=== PATIENT | male | born 2000 | race Caucasian/White ===

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

== ENCOUNTER 2020-03-09 19:32 | Emergency (ER) | payer BC, MEDICAID, OTHER ==
[~2020-03-09] VITALS: Ht 170 cm; Wt 101.0 kg
--- NOTE | 2020-03-09 19:43 | ED General ---
General Stated Complaint: DEHYDRATION Source of Information: Patient Exam Limitations: No Limitations History of Present Illness Date Seen by Provider: Mar 09, 2020 Time Seen by Provider: 19:42 Initial Comments To ER with concerns for dehydration based on dark urine. He went to [place] emergency room this morning for anxiety, went home and noticed dark urine and decided to come here. No fever no chills no shortness of breath. Timing/Duration: 1-2 Days Severity: Moderate Allergies and Home Medications Allergies Coded Allergies: No Known Drug Allergies (Unverified , 01/15/13) Home Medications Montelukast Sodium 10 Mg Tablet, 1 TAB PO DAILY, (Reported) Patient Home Medication List Home Medication List Reviewed: Yes Review of Systems Review of Systems Constitutional: see HPI EENTM: see HPI Respiratory: no symptoms reported Cardiovascular: no symptoms reported Genitourinary: no symptoms reported Musculoskeletal: no symptoms reported Skin: no symptoms reported Psychiatric/Neurological: No Symptoms Reported Hematologic/Lymphatic: No Symptoms Reported Immunological/Allergic: no symptoms reported Past Jrszgqq-Hueylq-Qauiaf Hx Patient Social History Recent Foreign Travel: No Contact w/Someone Who Travel: No Recent Hopitalizations: No Seasonal Allergies Seasonal Allergies: No Past Medical History Adenoidectomy, Tonsillectomy Asthma, Pneumonia Physical Exam Vital Signs Vital Signs - First Documented 03/09/20 19:35 Temp 36.6 Pulse 78 Resp 20 B/P (MAP) 169/128 (142) Pulse Ox 98 O2 Delivery Room Air Capillary Refill : Height, Weight, BMI Height: 5'5" Weight: 170lbs. oz. 77.704798de; 28.29 BMI Method:Stated General Appearance: No Apparent Distress, WD/WN, Anxious, Other (talks nearly nonstop) Eyes: Bilateral Eye Normal Inspection, Bilateral Eye PERRL, Bilateral Eye EOMI HEENT: PERRL/EOMI, TMs Normal Neck: Full Range of Motion, Normal Inspection Respiratory: No Accessory Muscle Use, No Respiratory Distress Cardiovascular: Regular Rate, Rhythm, Normal Peripheral Pulses Gastrointestinal: Non Tender, Soft Extremity: Normal Capillary Refill, Normal Inspection Neurologic/Psychiatric: Alert, Oriented x3 Skin: Normal Color, Warm/Dry Progress/Results/Core Measures Suspected Sepsis SIRS Temperature: Pulse: Respiratory Rate: Laboratory Tests 03/09/20 19:40: White Blood Count 11.7H Blood Pressure / Mean: Laboratory Tests 03/09/20 19:40: Creatinine 0.97, Platelet Count 401H, Total Bilirubin 0.6 Results/Orders Lab Results Laboratory Tests Test 03/09/20 19:40 Range/Units White Blood Count 11.7 H 4.3-11.0 10^3/uL Red Blood Count 6.07 H 4.35-5.85 10^6/uL Hemoglobin 17.1 13.3-17.7 G/DL Hematocrit 50 40-54 % Mean Corpuscular Volume 82 80-99 FL Mean Corpuscular Hemoglobin 28 25-34 PG Mean Corpuscular Hemoglobin Concent 34 32-36 G/DL Red Cell Distribution Width 13.2 10.0-14.5 % Platelet Count 401 H 130-400 10^3/uL Mean Platelet Volume 10.1 7.4-10.4 FL Neutrophils (%) (Auto) 66 42-75 % Lymphocytes (%) (Auto) 22 12-44 % Monocytes (%) (Auto) 9 0-12 % Eosinophils (%) (Auto) 2 0-10 % Basophils (%) (Auto) 1 0-10 % Neutrophils # (Auto) 7.8 1.8-7.8 X 10^3 Lymphocytes # (Auto) 2.6 1.0-4.0 X 10^3 Monocytes # (Auto) 1.0 0.0-1.0 X 10^3 Eosinophils # (Auto) 0.2 0.0-0.3 10^3/uL Basophils # (Auto) 0.1 0.0-0.1 10^3/uL Sodium Level 140 135-145 MMOL/L Potassium Level 4.0 3.6-5.0 MMOL/L Chloride Level 107 98-107 MMOL/L Carbon Dioxide Level 21 21-32 MMOL/L Anion Gap 12 5-14 MMOL/L Blood Urea Nitrogen 15 7-18 MG/DL Creatinine 0.97 0.60-1.30 MG/DL Estimat Glomerular Filtration Rate > 60 BUN/Creatinine Ratio 15 Glucose Level 92 70-105 MG/DL Calcium Level 10.1 8.5-10.1 MG/DL Corrected Calcium 8.5-10.1 MG/DL Total Bilirubin 0.6 0.1-1.0 MG/DL Aspartate Amino Transf (AST/SGOT) 32 5-34 U/L Alanine Aminotransferase (ALT/SGPT) 61 H 0-55 U/L Alkaline Phosphatase 75 40-136 U/L Total Protein 8.2 6.4-8.2 GM/DL Albumin 5.2 H 3.2-4.5 GM/DL My Orders Orders - MARI SMITH APRN Ua Culture If Indicated (03/09/20 19:40) Ed Iv/Invasive Line Start (03/09/20 19:40) Ns Iv 1000 Ml (Sodium Chloride 0.9%) (03/09/20 19:45) Lorazepam Injection (Ativan Injection) (03/09/20 19:45) Medications Given in ED Current Medications Medications Dose Ordered Sig/[place] Route Start Time Stop Time Status Last Admin Dose Admin Lorazepam 0.5 mg ONCE PRN IVP 03/09/20 19:45 03/09/20 19:49 0.5 MG Vital Signs/I&O 03/09/20 19:35 Temp 36.6 Pulse 78 Resp 20 B/P (MAP) 169/128 (142) Pulse Ox 98 O2 Delivery Room Air Capillary Refill : Departure Impression Primary Impression: Anxiety Additional Impression: Dark urine Disposition: 01 HOME, SELF-CARE Condition: Stable Departure-Patient Inst. Decision time for Depature: 20:09 Referrals: [facility] (PCP/Family) Primary Care Physician Patient Instructions: NO INSTRUCTIONS GIVEN MARI SMITH APRN Mar 09, 2020 19:43
[2020-03-09] MEDS ORDERED: NS IV 1000 ML 1,000 ML IV SCH (19:45)
[2020-03-09] MEDS ORDERED: LORazepam INJ 2 MG/ML (ATIVAN) VIAL IVP PRN (19:45)
[2020-03-09 19:49] LABS: BASOPHILS # (AUTO) 0.1 10^3/uL (0.0-0.1); BASOPHILS % (AUTO) 1 % (0-10); EOSINOPHILS # (AUTO) 0.2 10^3/uL (0.0-0.3); EOSINOPHILS % (AUTO) 2 % (0-10); HEMATOCRIT 50 % (40-54); HEMOGLOBIN 17.1 G/DL (13.3-17.7); LYMPHOCYTES # (AUTO) 2.6 X 10^3 (1.0-4.0); LYMPHOCYTES % (AUTO) 22 % (12-44); MEAN CORPUSCULAR HEMOGLOBIN 28 PG (25-34); MEAN CORPUSCULAR HGB CONC 34 G/DL (32-36); MEAN CORPUSCULAR VOLUME 82 FL (80-99); MEAN PLATELET VOLUME 10.1 FL (7.4-10.4); MONOCYTES % (AUTO) 9 % (0-12); NEUTROPHILS # (AUTO) 7.8 X 10^3 (1.8-7.8); NEUTROPHILS % (AUTO) 66 % (42-75); PLATELET COUNT 401 10^3/uL (130-400); RED CELL DISTRIBUTION WIDTH 13.2 % (10.0-14.5); WHITE BLOOD COUNT 11.7 10^3/uL (4.3-11.0)
[2020-03-09 19:58] LABS: ALBUMIN 5.2 GM/DL (3.2-4.5)
[2020-03-09 19:59] LABS: CHLORIDE 107 MMOL/L (98-107); SODIUM 140 MMOL/L (135-145)
[2020-03-09 20:00] LABS: CALCIUM 10.1 MG/DL (8.5-10.1)
[2020-03-09 20:01] LABS: GLUCOSE 92 MG/DL (70-105); TOTAL PROTEIN 8.2 GM/DL (6.4-8.2)
[2020-03-09 20:02] LABS: CARBON DIOXIDE 21 MMOL/L (21-32)
[2020-03-09 20:03] LABS: BILIRUBIN,TOTAL 0.6 MG/DL (0.1-1.0)
[2020-03-09 20:04] LABS: ALKALINE PHOSPHATASE 75 U/L (40-136)
[2020-03-09 20:05] LABS: CREATININE SERUM 0.97 MG/DL (0.60-1.30); GFR ESTIMATED > 60
[2020-03-09 20:06] LABS: BUN/CREATININE RATIO 15
[2020-03-09 20:08] LABS: ALANINE AMINOTRANSFERASE 61 U/L (0-55)
[2020-03-09 20:16] LABS: BILIRUBIN,URINE NEGATIVE (NEGATIVE); CLARITY,URINE CLEAR; COLOR,URINE YELLOW; GLUCOSE, URINE (UA) NEGATIVE (NEGATIVE); KETONES,URINE TRACE (NEGATIVE); LEUKOCYTE ESTERASE ,URINE NEGATIVE (NEGATIVE); NITRITE,URINE NEGATIVE (NEGATIVE); PROTEIN,URINE NEGATIVE (NEGATIVE)
[2020-03-09 20:32] LABS: AMORPHOUS SEDIMENT,UR RARE AMOR URATES /LPF; BACTERIA,URINE NEGATIVE /HPF
[2020-03-09 20:36] VITALS: BP 156/101
--- OUTSIDE RECORDS SUMMARY | 2020-03-09 20:55 | XMS REPORT ---
Author Author Franky BLOOM Organization [facility] Address [address] [place] [address] Care Team Providers Care Stock Trader Name Role Phone MARLY BLOOM Unavailable PROBLEMS Type Condition ICD9-CM Code [id number] Code Onset Dates Condition S tatus SNOMED Code Problem Gastroesophageal reflux disease without esophagitis K21.9 Active 608709671 Problem Seasonal allergic rhinitis due to other allergic trigger J30.89 Active 638055280 Problem Irritable bowel syndrome, unspecified type K58.9 Active 68421683 ALLERGIES No Known Allergies ENCOUNTERS Encounter Location Date Diagnosis [facility] [address] [facility] [id number] [address] [place] [phone] Feb, Dermatofibroma D23.9 [facility] [address] [facility] [id number] [address] [place] [phone] Feb, Dermatofibroma D23.9 [facility] [address] [facility] [id number] [address] [place] [phone] Feb, [facility] [address] [facility] [id number] [address] [place] [phone] December, Irritable bowel syndrome, un specified type K58.9 [facility] [address] [facility] [id number] [address] [place] [phone] Nov, [facility] [address] [facility] [id number] [address] [place] [phone] Nov, Seasonal allergic rhinitis d ue to other allergic trigger J30.89 and Gastroesophageal reflux disease without esophagitis K21.9 [facility] [address] [facility] [id number] [address] [place] [phone] Nov, Acute bronchitis, unspecifie d organism J20.9 and Irritable bowel syndrome, unspecified type K58.9 [facility] [address] [facility] [id number] [address] [place] [address] May, Neck muscle spasm M62.838 an d Cervical pain (neck) M54.2 IMMUNIZATIONS No Known Immunizations SOCIAL HISTORY Never Assessed REASON FOR VISIT cryo f/u----DBennettRN, requesting refill on prednisione for allergies PLAN OF CARE Activity Details Follow Up 4 Weeks Reason:cryo Future/Pending Procedure CRYOTHERAPY OF SKIN VITAL SIGNS Height 67 in 2018-03-11 Weight 191 lbs 2018-03-11 Temperature 98.2 degrees Fahrenheit 2018-03-11 Heart Rate 70 bpm 2018-03-11 Respiratory Rate 20 2018-03-11 BMI 29.91 kg/m2 2018-03-11 Blood pressure systolic 94 mmHg 2018-03-11 Blood pressure diastolic 60 mmHg 2018-03-11 MEDICATIONS Medication Instructions Dosage Frequency Start Date End Date Duration S tatus Fluticasone Propionate 50 MCG/ACT Nasally Once a day 1-2 spray i n each nostril 24h Active ProAir HFA 108 (90 Base) MCG/ACT Inhalation every 6 hrs 2 puffs as ne eded 6h Active Singulair 10 MG Orally Once a day 1 tablet in the evening 24h Active Protonix 40 mg Orally Once a day 1 tablet 24h Nov, 3 0 day(s) Not-Taking PredniSONE 10 mg Orally once daily, morning with food 4 t ablet x 2 day, then 3 tablets x 2 days, then 2 tablets x 2 days, then 1 tablets x 2 days 30 day(s) Active Cetirizine HCl 10 mg Orally Once a day 1 tablet 24h Nov, 8 May, 30 day(s) Active Mucinex 600 MG Orally every 12 hrs 1 tablet as needed 12h Not-Taking Zantac 150 MG Orally Once a day 1 tablet at bedtime 24h Nov, 30 day(s) Active Acidophilus 100 mg Orally Once a day 1 capsule 24h Nov, Not-Taking Bentyl 10 mg Orally Four times a day 2 capsules 6h Nov, 30 days Not-Taking RESULTS No Results PROCEDURES Procedure Date Ordered Result Body Site CRYOTHERAPY OF SKIN March 11, 2018 INSTRUCTIONS MEDICATIONS ADMINISTERED No Known Medications MEDICAL (GENERAL) HISTORY Type Description Date Medical History mild intermittent asthma Surgical History T &A Hospitalization History several times as an infant for RAD
--- OUTSIDE RECORDS SUMMARY | 2020-03-09 20:55 | XMS REPORT ---
Author Author Franky Mejia Organization [facility] Address [address] [place] [address] Care Team Providers Care Toolmaker Helper Name Role Phone TESS Mejia Unavailable PROBLEMS Type Condition ICD9-CM Code [id number] Code Onset Dates Condition S tatus SNOMED Code Problem Gastroesophageal reflux disease without esophagitis K21.9 Active 911298698 Problem Seasonal allergic rhinitis due to other allergic trigger J30.89 Active 840980863 Problem Irritable bowel syndrome, unspecified type K58.9 Active 34538959 ALLERGIES No Known Allergies ENCOUNTERS Encounter Location Date Diagnosis [place] [address] [facility] [id number] [address] [place] [phone] Mar, [place] [address] [facility] [id number] [address] [place] [phone] Feb, Dermatofibroma D23.9 [place] [address] [facility] [id number] [address] [place] [phone] Feb, Dermatofibroma D23.9 [place] [address] [facility] [id number] [address] [place] [phone] Feb, [facility] [address] [place] [id number] [address] [place] [phone] December, Irritable bowel syndrome, un specified type K58.9 [facility] [address] [facility] [id number] [address] [place] [phone] Nov, [facility] [address] [facility] [id number] [address] [place] [phone] Nov, Seasonal allergic rhinitis d ue to other allergic trigger J30.89 and Gastroesophageal reflux disease without esophagitis K21.9 [facility] [address] [facility] [id number] [address] [place] [address] Nov, Acute bronchitis, unspecifie d organism J20.9 and Irritable bowel syndrome, unspecified type K58.9 [facility] [address] [facility] [id number] [address] [place] [address] May, Neck muscle spasm M62.838 an d Cervical pain (neck) M54.2 IMMUNIZATIONS No Known Immunizations SOCIAL HISTORY Never Assessed REASON FOR VISIT congestion and cough. also has a stomach ache. been sick for a week. [email or web address] PLAN OF CARE Activity Details Follow Up prn Reason: VITAL SIGNS Height 67 in 2017-11-22 Weight 194.6 lbs 2017-11-22 Temperature 98.4 degrees Fahrenheit 2017-11-22 Heart Rate 80 bpm 2017-11-22 Respiratory Rate 20 2017-11-22 BMI 30.48 kg/m2 2017-11-22 Blood pressure systolic 122 mmHg 2017-11-22 Blood pressure diastolic 70 mmHg 2017-11-22 MEDICATIONS Medication Instructions Dosage Frequency Start Date End Date Duration S tatus PredniSONE 10 mg Orally once daily, morning with food 4 t ablet x 2 day, then 3 tablets x 2 days, then 2 tablets x 2 days, then 1 tablets x 2 days 30 day(s) Active Bentyl 10 mg Orally Four times a day 2 capsules 6h Nov, Nov, 05 days Active ProAir HFA 108 (90 Base) MCG/ACT Inhalation every 4-6 hours as n eeded 1-2 puffs Active Mucinex 600 MG Orally every 12 hrs 1 tablet as needed 12h Active ProAir HFA 108 (90 Base) MCG/ACT Inhalation every 6 hrs 2 puffs as ne eded 6h Active Singulair 10 MG Orally Once a day 1 tablet in the evening 24h Active Fluticasone Propionate 50 MCG/ACT Nasally Once a day 1-2 spray i n each nostril 24h Active RESULTS No Results PROCEDURES No Known procedures INSTRUCTIONS MEDICATIONS ADMINISTERED No Known Medications MEDICAL (GENERAL) HISTORY Type Description Date Medical History mild intermittent asthma Surgical History T &A Hospitalization History several times as an infant for RAD
--- OUTSIDE RECORDS SUMMARY | 2020-03-09 20:55 | XMS REPORT ---
Author Author Franky BLOOM Organization [facility] Address [address] [place] [address] Care Team Providers Care Food Sampler Name Role Phone MARLY BLOOM Unavailable PROBLEMS Type Condition ICD9-CM Code [id number] Code Onset Dates Condition S tatus SNOMED Code Problem Gastroesophageal reflux disease without esophagitis K21.9 Active 846759211 Problem Seasonal allergic rhinitis due to other allergic trigger J30.89 Active 715110176 Problem Irritable bowel syndrome, unspecified type K58.9 Active 58962399 ALLERGIES No Known Allergies ENCOUNTERS Encounter Location Date Diagnosis [facility] [address] [facility] [id number] [address] [place] [phone] Mar, [facility] [address] [facility] [id number] [address] [place] [phone] Feb, Dermatofibroma D23.9 [facility] [address] [facility] [id number] [address] [place] [phone] Feb, Dermatofibroma D23.9 [facility] [address] [facility] [id number] [address] [place] [phone] Feb, [facility] [address] [facility] [id number] [address] [place] [phone] December, Irritable bowel syndrome, un specified type K58.9 [facility] [address] [facility] [id number] [address] [place] [phone] Nov, [facility] [address] [facility] [id number] [address] [place] [phone] Nov, Seasonal allergic rhinitis d ue to other allergic trigger J30.89 and Gastroesophageal reflux disease without esophagitis K21.9 [facility] [address] [facility] [id number] [address] [place] [phone] Nov, Acute bronchitis, unspecifie d organism J20.9 and Irritable bowel syndrome, unspecified type K58.9 [facility] [address] [facility] [id number] [address] [place] [address] May, Neck muscle spasm M62.838 an d Cervical pain (neck) M54.2 IMMUNIZATIONS No Known Immunizations SOCIAL HISTORY Never Assessed REASON FOR VISIT Vomiting- chest congestion, vomits daily, burning c/o epigastric pain- Shellie ren RN PLAN OF CARE VITAL SIGNS Height 67 in 2017-11-25 Weight 194 lbs 2017-11-25 Temperature 98.0 degrees Fahrenheit 2017-11-25 Heart Rate 78 bpm 2017-11-25 Respiratory Rate 18 2017-11-25 BMI 30.38 kg/m2 2017-11-25 Blood pressure systolic 134 mmHg 2017-11-25 Blood pressure diastolic 78 mmHg 2017-11-25 MEDICATIONS Medication Instructions Dosage Frequency Start Date End Date Duration S tatus Bentyl 10 mg Orally Four times a day 2 capsules 6h Nov, Nov, 05 days Active Zantac 150 MG Orally Once a day 1 tablet at bedtime 24h Nov, 30 day(s) Active Protonix 40 mg Orally Once a day 1 tablet 24h Nov, 3 0 day(s) Active Singulair 10 MG Orally Once a day 1 tablet in the evening 24h Active Acidophilus 100 mg Orally Once a day 1 capsule 24h Nov, Active PredniSONE 10 mg Orally once daily, morning with food 4 t ablet x 2 day, then 3 tablets x 2 days, then 2 tablets x 2 days, then 1 tablets x 2 days 30 day(s) Active ProAir HFA 108 (90 Base) MCG/ACT Inhalation every 6 hrs 2 puffs as ne eded 6h Active Fluticasone Propionate 50 MCG/ACT Nasally Once a day 1-2 spray i n each nostril 24h Active Mucinex 600 MG Orally every 12 hrs 1 tablet as needed 12h Active Cetirizine HCl 10 mg Orally Once a day 1 tablet 24h Nov, 8 May, 30 day(s) Active RESULTS No Results PROCEDURES No Known procedures INSTRUCTIONS MEDICATIONS ADMINISTERED No Known Medications MEDICAL (GENERAL) HISTORY Type Description Date Medical History mild intermittent asthma Surgical History T &A Hospitalization History several times as an infant for RAD
--- OUTSIDE RECORDS SUMMARY | 2020-03-09 20:55 | XMS REPORT ---
Author Author Franky BLOOM Organization [facility] Address [address] [place] [address] Care Team Providers Care Fingerprint Technician Name Role Phone MARLY BLOOM Unavailable PROBLEMS Type Condition ICD9-CM Code [id number] Code Onset Dates Condition S tatus SNOMED Code Problem Gastroesophageal reflux disease without esophagitis K21.9 Active 567837894 Problem Seasonal allergic rhinitis due to other allergic trigger J30.89 Active 973186450 Problem Irritable bowel syndrome, unspecified type K58.9 Active 82864830 ALLERGIES No Information ENCOUNTERS Encounter Location Date Diagnosis [facility] [address] [facility] [id number] [address] [place] [phone] Feb, Dermatofibroma D23.9 [facility] [address] [facility] [id number] [address] [place] [phone] Feb, Dermatofibroma D23.9 [facility] [address] [facility] [id number] [address] [place] [phone] Feb, [facility] [address] [facility] [id number] [address] [place] [phone] December, Irritable bowel syndrome, un specified type K58.9 [facility] [address] [facility] [id number] [address] [place] [phone] Nov, [facility] [address] [facility] [id number] [address] [place] [phone] 16 Nov, 2017 Seasonal allergic rhinitis d ue to other allergic trigger J30.89 and Gastroesophageal reflux disease without esophagitis K21.9 [facility] [address] [facility] [id number] [address] [place] [phone] 13 Nov, 2017 Acute bronchitis, unspecifie d organism J20.9 and Irritable bowel syndrome, unspecified type K58.9 [facility] [address] [facility] [id number] [address] [place] [address] May, Neck muscle spasm M62.838 an d Cervical pain (neck) M54.2 IMMUNIZATIONS No Known Immunizations SOCIAL HISTORY Never Assessed REASON FOR VISIT prcedure PLAN OF CARE VITAL SIGNS MEDICATIONS Unknown Medications RESULTS No Results PROCEDURES No Known procedures INSTRUCTIONS MEDICATIONS ADMINISTERED No Known Medications MEDICAL (GENERAL) HISTORY Type Description Date Medical History mild intermittent asthma Surgical History T &A Hospitalization History several times as an infant for RAD
--- OUTSIDE RECORDS SUMMARY | 2020-03-09 20:55 | XMS REPORT ---
Author Author Franky Mejia Organization [facility] Address [address] [place] [address] Care Team Providers Care Auto Headlight Mechanic Name Role Phone TESS Mejia Unavailable PROBLEMS Type Condition ICD9-CM Code [id number] Code Onset Dates Condition S tatus SNOMED Code Problem Gastroesophageal reflux disease without esophagitis K21.9 Active 484456604 Problem Seasonal allergic rhinitis due to other allergic trigger J30.89 Active 182954327 Problem Irritable bowel syndrome, unspecified type K58.9 Active 41836273 ALLERGIES No Information ENCOUNTERS Encounter Location Date Diagnosis [place] [address] [address] [facility] [id number] [address] [place] [address] Mar, [place] [address] [address] [facility] [id number] [address] [place] [phone] Feb, Dermatofibroma D23.9 [place] [address] [address] [facility] [id number] [address] [place] [address] Feb, Dermatofibroma D23.9 [place] [address] [address] [facility] [id number] [address] [place] [address] Feb, [place] [address] [address] [facility] [id number] [address] [place] [address] December, Irritable bowel syndrome, un specified type K58.9 [facility] [address] [facility] [id number] [address] [place] [address] Nov, [facility] [address] [facility] [id number] [address] [place] [phone] Nov, Seasonal allergic rhinitis d ue to other allergic trigger J30.89 and Gastroesophageal reflux disease without esophagitis K21.9 [facility] [address] [facility] [id number] [place] [address] Nov, Acute bronchitis, unspecifie d organism J20.9 and Irritable bowel syndrome, unspecified type K58.9 [facility] [address] [facility] [id number] [place], [place] [address] May, Neck muscle spasm M62.838 an d Cervical pain (neck) M54.2 IMMUNIZATIONS No Known Immunizations SOCIAL HISTORY Never Assessed REASON FOR VISIT rx denied PLAN OF CARE VITAL SIGNS MEDICATIONS Unknown Medications RESULTS No Results PROCEDURES No Known procedures INSTRUCTIONS MEDICATIONS ADMINISTERED No Known Medications MEDICAL (GENERAL) HISTORY Type Description Date Medical History mild intermittent asthma Surgical History T &A Hospitalization History several times as an infant for RAD
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
--- OUTSIDE RECORDS SUMMARY | 2020-03-09 20:55 | XMS REPORT | Continuity of Care Document ---
Author Author [facility] Organization [facility] Address Unknown Phone Unavailable Care Team Providers Care Network Systems Integrator Name Role Phone BRANDEE BETANCOURT DO PP Insurance Providers Payer Name Policy Number Subscriber Name Relationship [facility] [id number] Minnie Mclaughlin 01 Self / Same As Patient Advance Directives Directive Response Recor ded Date Advance Directives N 01/22 9:44pm Problems No Known Problems or Medical conditions. Social History History Response Recorde d Date/Time Alcohol Use Denies Use 0 01/15/13 9:44pm Recreational Drug Use N 01/15/13 9:44pm Allergies, Adverse Reactions, Alerts Allergen Type Severity Reaction Last Updated No Known Drug Allergies 01/15/13 Medications Medication Dose Units Route Sig Qty Days Multivitamin (Multi-Vitamin Daily) 1 Each PO Albuterol Sulfate/Ipratropium (Duoneb 2.5-0.5 Mg/3 Ml Soln) 3 Ml IH PRN Albuterol (Proair Hfa) 8.5 Gm IH PRN Fluticasone Propionate (Flonase Nasal [place]) 16 Gm NS DAILY Montelukast Sodium (Singulair 10 Mg) 1 Tab PO DAILY 30 Response Recorded Date/Time Status not known Unknown Results No Known Relevant Diagnostic Tests, Laboratory Data and/or Discharge Summary. Encounters Encounter Location Date/ Time Departed Emergency Room [facility] 01/15/13 9:32pm
--- OUTSIDE RECORDS SUMMARY | 2020-03-09 20:55 | XMS REPORT ---
Author Author Franky BLOOM Organization [facility] Address [address] [place] [address] Care Team Providers Care Hemmer Chainstitch Name Role Phone MARLY BLOOM Unavailable PROBLEMS Type Condition ICD9-CM Code [id number] Code Onset Dates Condition S tatus SNOMED Code Problem Gastroesophageal reflux disease without esophagitis K21.9 Active 509575714 Problem Seasonal allergic rhinitis due to other allergic trigger J30.89 Active 927654090 Problem Irritable bowel syndrome, unspecified type K58.9 Active 66665614 ALLERGIES No Information ENCOUNTERS Encounter Location Date Diagnosis [facility] [address] [facility] [id number] [place] [phone] Mar, [facility] [address] [facility] [id number] [place] [phone] Feb, Dermatofibroma D23.9 [facility] [address] [facility] [id number] [place] [phone] Feb, Dermatofibroma D23.9 [facility] [address] [facility] [id number] [place] [phone] Feb, [facility] [address] [facility] [id number] [place] [phone] December, Irritable bowel syndrome, un specified type K58.9 [facility] [address] [facility] [id number] [place] [address] Nov, [facility] [address] [facility] [id number] [place] [address] Nov, Seasonal allergic rhinitis d ue to other allergic trigger J30.89 and Gastroesophageal reflux disease without esophagitis K21.9 [facility] [address] [facility] [id number] [place] [address] Nov, Acute bronchitis, unspecifie d organism J20.9 and Irritable bowel syndrome, unspecified type K58.9 [facility] [address] [facility] [address] [id number] [address], [place] [address] May, Neck muscle spasm M62.838 an d Cervical pain (neck) M54.2 IMMUNIZATIONS No Known Immunizations SOCIAL HISTORY Never Assessed REASON FOR VISIT Refill request// PLAN OF CARE VITAL SIGNS MEDICATIONS Medication Instructions Dosage Frequency Start Date End Date Duration S tatus Bentyl 10 mg Orally Four times a day 2 capsules 6h Nov, 30 days Active RESULTS No Results PROCEDURES No Known procedures INSTRUCTIONS MEDICATIONS ADMINISTERED No Known Medications MEDICAL (GENERAL) HISTORY Type Description Date Medical History mild intermittent asthma Surgical History T &A Hospitalization History several times as an for RAD
== END 2020-03-09 20:36 | disposition home or self-care (01) ==
LOC: EDUNIT# 19:32 → ER 19:33
DX: F41.9 Anxiety disorder, unspecified (principal); R82.998 Other abnormal findings in urine; J45.909 Unspecified asthma, uncomplicated
CPT/HCPCS: 36415; 80053; 81000; 85025; 99283

== ENCOUNTER 2020-03-11 20:47 | Emergency (ER) | payer BC ==
[~2020-03-11] VITALS: Ht 175 cm; Wt 90.7 kg
[2020-03-11] MEDS ORDERED: OLANZapine 5 MG ODT (ZyPREXA ZYDIS) PO ONE (21:00)
--- NOTE | 2020-03-11 21:05 | ED Neurological Problem ---
General Stated Complaint: LEG AND ARM NUMBNESS Source: patient Exam Limitations: no limitations History of Present Illness Date Seen by Provider: Mar 11, 2020 Time Seen by Provider: 21:01 Initial Comments To ER with bilateral arm and bilateral leg numbness. His symptoms began about 2 weeks ago after smoking a dab of wax. He hasn't done that in 2 weeks, has persistent difficulty sleeping due to insomnia, states he has trouble getting a clear thought into his head. He states he feels like hes still awake in his dreams and can hear things as if he is awake. He saw primary care who prescribed paxil. He took that for 3 days but quit 2-3 days ago. I saw him then and gave a script for lexapro but he hasnt yet started it. Despite that still cannot sleep or form a clear thought. Father has Bipolar disorder. Pt has no known psychiatric disorderes. Right now, he doesnt feel anxious. Timing/Duration: other (2-3 weeks ) Severity: moderate Allergies and Home Medications Allergies Coded Allergies: No Known Drug Allergies (Unverified , 01/15/13) Home Medications Montelukast Sodium 10 Mg Tablet, 1 TAB PO DAILY, (Reported) Quetiapine Fumarate 100 Mg Tablet, 100 MG PO UD half tablet twice a day on days one and two then one whole tablet twice a day. Prescribed by: MARI SMITH on 03/11/202113 Patient Home Medication List Home Medication List Reviewed: Yes Review of Systems Review of Systems Constitutional: see HPI Eyes: No Symptoms Reported Ears, Nose, Mouth, Throat: no symptoms reported Respiratory: no symptoms reported Cardiovascular: no symptoms reported Genitourinary: no symptoms reported Musculoskeletal: no symptoms reported Skin: no symptoms reported Psychiatric/Neurological: See HPI, Anxiety Past Ukznhpq-Apajsk-Snfzbf Hx Patient Social History Drug of Choice: marijuana Recent Foreign Travel: No Contact w/Someone Who Travel: No Recent Hopitalizations: No Immunizations Up To Date Tetanus Booster (TDap): Unknown Seasonal Allergies Seasonal Allergies: No Past Medical History Surgeries: No Adenoidectomy, Tonsillectomy Respiratory: No Asthma, Pneumonia Cardiac: No Neurological: No Genitourinary: No Gastrointestinal: Yes Chronic Constipation Musculoskeletal: No Endocrine: No HEENT: No Cancer: No Psychosocial: Yes Anxiety, Depression Integumentary: No Blood Disorders: No Adverse Reaction/Blood Tranf: No Physical Exam Vital Signs Vital Signs - First Documented 03/11/20 20:49 Temp 36.7 Pulse 101 Resp 20 B/P (MAP) 135/113 (120) Pulse Ox 96 O2 Delivery Room Air Capillary Refill : Height, Weight, BMI Height: 5'5" Weight: 170lbs. oz. 77.547107xv; 34.00 BMI Method:Stated General Appearance: WD/WN, no apparent distress HEENT: PERRL/EOMI, normal ENT inspection, other (anxious, pleasant, makes good eye contact. No homicidal or suicidal thoughts. ) Respiratory: lungs clear, normal breath sounds, no respiratory distress, no accessory muscle use Gastrointestinal: normal bowel sounds, non tender, soft Extremities: normal range of motion, non-tender Neurologic/Psychiatric: alert, normal mood/affect, oriented x 3 Skin: normal color, warm/dry Progress/Results/Core Measures Results/Orders Lab Results Laboratory Tests Test 03/11/20 21:13 Range/Units My Orders Orders - MARI SMITH APRN Olanzapine Orally Dissolve Tab (Zyprexa (03/11/20 21:00) Thyroid Stimulating Hormone (03/11/20 21:09) Free T4 (Free Thyroxine) (03/11/20 21:09) Vital Signs/I&O 03/11/20 20:49 Temp 36.7 Pulse 101 Resp 20 B/P (MAP) 135/113 (120) Pulse Ox 96 O2 Delivery Room Air Departure Communication (Admissions) Would suspect this may be an acute onset of bipolar disorder with oni. Impression Primary Impression: Anxiety Disposition: 01 HOME, SELF-CARE Condition: Stable Departure-Patient Inst. Decision time for Depature: 21:12 Referrals: [facility] – [place] (PCP/Family) Primary Care Physician Patient Instructions: OUTPT [facility] Add. Discharge Instructions: 1. Medication as directed Scripts Lorazepam (Ativan) 1 Mg Tablet 1 MG PO TID PRN for ANXIETY for 7 Days, #14 TAB Prov: MARI SMITH APRN 03/11/20 MARI SMITH APRN Mar 11, 2020 21:05
[2020-03-11] MEDS ORDERED: QUET100T33 PO (21:14)
[2020-03-11] MEDS ORDERED: LORA-405 PO (21:49)
[2020-03-11] MEDS ORDERED: RX-LORAZEPAM (ATIVAN) 0.5 MG TAB PPK#4 PO STA (21:50)
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
[2020-03-11 22:21] LABS: FREE T4 (FREE THYROXINE) 1.13 NG/DL (0.70-1.48)
[2020-03-11 22:30] VITALS: BP 130/98
== END 2020-03-11 22:30 | disposition home or self-care (01) ==
LOC: EDUNIT# 20:47 → ER 20:49
DX: F41.9 Anxiety disorder, unspecified (principal); F32.9 Major depressive disorder, single episode, unspecified
CPT/HCPCS: 36415; 84439; 84443

== ENCOUNTER 2021-11-29 02:55 | Emergency (ER) | payer MEDICAID ==
[~2021-11-29] VITALS: Ht 173 cm; Wt 102.0 kg
[~2021-11-29 02:55] MED LIST changes: +LORA-405 PO; +QUET100T33 PO
[2021-11-29 03:00] VITALS: BP 136/84
== END 2021-11-29 04:15 | disposition left against medical advice (07) ==
LOC: EDUNIT# 02:55 → ER 03:00
DX: R56.9 Unspecified convulsions (principal)
CPT/HCPCS: 99281

== ENCOUNTER 2021-12-10 06:32 | Observation (INO) | payer MEDICAID ==
[~2021-12-10] VITALS: Ht 172.7 cm; Wt 112.3 kg
[2021-12-10] MEDS ORDERED: ESCI5TAB PO (06:51)
[2021-12-10 07:33] LABS: BILIRUBIN,URINE NEGATIVE (NEGATIVE); CLARITY,URINE SL CLOUDY; COLOR,URINE YELLOW; GLUCOSE, URINE (UA) NEGATIVE (NEGATIVE); KETONES,URINE NEGATIVE (NEGATIVE); LEUKOCYTE ESTERASE ,URINE NEGATIVE (NEGATIVE); NITRITE,URINE NEGATIVE (NEGATIVE); PROTEIN,URINE 1+ (NEGATIVE)
[2021-12-10 07:39] LABS: AMORPHOUS SEDIMENT,UR MOD AMOR URATES /LPF; BACTERIA,URINE NEGATIVE /HPF; RBC,URINE RARE /HPF; WBC,URINE RARE /HPF
[2021-12-10] MEDS ORDERED: ONDANSETRON 4 MG/2 ML (SDV) Z0FRAN IVP ONE (07:45)
[2021-12-10] MEDS ORDERED: HYOSCYAMINE 0.125 MG (LEVSIN) TAB SL ONE (07:45)
[2021-12-10] MEDS ORDERED: LACTATED RINGERS 1,000 ML IV ONE (07:45)
[2021-12-10 07:50] LABS: AMPHETAMINE SCREEN, URINE NEGATIVE (NEGATIVE); BARBITURATE SCREEN URINE NEGATIVE (NEGATIVE); BENZODIAZEPINES SCREEN URINE NEGATIVE (NEGATIVE); CANNABINOID SCREEN, URINE POSITIVE (NEGATIVE); COCAINE SCREEN URINE NEGATIVE (NEGATIVE); METHADONE STAT NEGATIVE (NEGATIVE); OPIATE SCREEN URINE NEGATIVE (NEGATIVE); OXYCODONE STAT NEGATIVE (NEGATIVE); PROPOXYPHENE STAT NEGATIVE (NEGATIVE); TRICYCLIC ANTIDEPRESSANTS SCRE NEGATIVE (NEGATIVE)
[2021-12-10 08:16] LABS: BASOPHILS # (AUTO) 0.1 10^3/uL (0.0-0.1); BASOPHILS % (AUTO) 1 % (0-10); EOSINOPHILS # (AUTO) 0.3 10^3/uL (0.0-0.3); EOSINOPHILS % (AUTO) 2 % (0-10); HEMATOCRIT 53 % (40-54); HEMOGLOBIN 18.1 g/dL (13.3-17.7); LYMPHOCYTES # (AUTO) 1.4 10^3/uL (1.0-4.0); LYMPHOCYTES % (AUTO) 6 % (12-44); MEAN CORPUSCULAR HEMOGLOBIN 28 pg (25-34); MEAN CORPUSCULAR HGB CONC 34 g/dL (32-36); MEAN CORPUSCULAR VOLUME 82 fL (80-99); MEAN PLATELET VOLUME 9.5 fL (9.0-12.2); MONOCYTES # (AUTO) 1.1 10^3/uL (0.0-1.0); MONOCYTES % (AUTO) 5 % (0-12); NEUTROPHILS # (AUTO) 18.8 10^3/uL (1.8-7.8); NEUTROPHILS % (AUTO) 86 % (42-75); PLATELET COUNT 352 10^3/uL (130-400); WHITE BLOOD COUNT 21.9 10^3/uL (4.3-11.0)
[2021-12-10 08:31] LABS: ALANINE AMINOTRANSFERASE 27 U/L (0-55); ALBUMIN 4.8 GM/DL (3.2-4.5); ALKALINE PHOSPHATASE 67 U/L (40-136); AMYLASE 77 U/L (25-125); BILIRUBIN,TOTAL 0.8 MG/DL (0.1-1.0); BUN/CREATININE RATIO 18; CALCIUM 9.8 MG/DL (8.5-10.1); CARBON DIOXIDE 17 MMOL/L (21-32); CHLORIDE 108 MMOL/L (98-107); CREATININE SERUM 0.88 MG/DL (0.60-1.30); GFR ESTIMATED 125; GLUCOSE 121 MG/DL (70-105); LIPASE 24 U/L (8-78); POTASSIUM 3.6 MMOL/L (3.6-5.0); SODIUM 142 MMOL/L (135-145); TOTAL PROTEIN 7.4 GM/DL (6.4-8.2)
[2021-12-10] MEDS ORDERED: NS 100 ML (IVPB) BAG IV ONE (08:45)
[2021-12-10] MEDS ORDERED: HOLD METFORMIN - RECEIVED CONTRAST 20 ML VIAL IV SCH (08:45)
[2021-12-10] MEDS ORDERED: IOHEXOL 350 MG/ML 100 ML (OMNIPAQUE 350) VIAL IV ONE (08:45)
--- NOTE | 2021-12-10 08:50 | Diagnostic Imaging Report ---
Procedure: CT abdomen and pelvis with contrast, rule out appendicitis. Technique: Multiple contiguous axial images were obtained through the abdomen and pelvis after the administration of intravenous contrast. All CT scans use one or more of the following dose optimizing techniques: automated exposure control, MA and/or KvP adjustment based on patient size and exam type or iterative reconstruction. Indication: Right lower quadrant pain. Comparison: 01/15/2013. Discussion: Lung bases are well aerated. Normal heart size. No pleural or pericardial fluid. Cholelithiasis is now present. Fatty infiltration of the liver is noted. The stomach, pancreas, spleen, and adrenal glands are unremarkable. No renal stone or hydronephrosis. The appendix is normal. Bladder is decompressed. Prostate is normal in size. The remainder of the large and small bowel loops appear within normal limits. Shotty-appearing mesenteric lymph nodes are present. No ascites. No acute osseous abnormality identified. Impression: 1. Fatty infiltration of the liver. 2. Cholelithiasis. Dictated by: Dictated on workstation # [id number]
--- NOTE | 2021-12-10 08:51 | ED Abdominal Pain ---
General Chief Complaint: General Problems/Pain Stated Complaint: ABD PAIN Nursing Triage Note: C/O SHARP/CRAMPING LEFT LOWER ABDOMINAL PAIN SINCE 0100, ALSO C/O FEELING "DIZZY/OUT OF IT" FOR "WEEKS" Source of Information: Patient (EXTREMELY DIFFICULT HISTORIAN) History of Present Illness Date Seen by Provider: December 10, 2021 Time Seen by Provider: 07:10 Initial Comments PT ARRIVES VIA POV FROM HOME C/O GENERALIZED ABDOMINAL PAIN--MOST IS IN MID AND UPPER ABDOMEN STATES "I'VE ALWAYS HAD THIS PAIN AND I'VE BEEN TO MANY DOCTORS AND HAD LOTS OF BLOOD TESTS" CANNOT STATE WHO, WHERE, OR WHEN HE HAD THESE "TESTS" OR WHAT DIAGNOSIS HAS BEEN GIVEN OR IF HE HAS HAD ANY MEDICATION PRESCRIBED CANNOT STATE HOW LONG HE HAS BEEN HAVING THE PAIN--LATER STATES HE HAS BEEN HAVING SYMPTOMS FOR 4-5 YEARS. APPARENTLY THE PAIN GOT WORSE AROUND 0200, AFTER EATING A MUSHROOM AND LAO SANDWICH FROM [employer] AROUND 0130 THIS AM BEGAN HAVING NAUSEA AND VOMITING AROUND [id number] BEGAN HAVING DIARRHEA AFTER ARRIVAL HERE UNKNOWN IF HE HAS HAD FEVER. PT HAS QUIT TAKING ESCITALOPRAM ABOUT 1 1/2 WEEKS AGO, AND WAS NOT TAKING IT ON A REGULAR BASIS--STILL HAS BOTTLE FILLED IN 06/2021. WAS PRESCRIBED FOR ANXIETY AND DEPRESSION PT DENIES TAKING ANY OTHER MEDICATIONS PT DOES USE MARIJUANA ON A REGULAR BASIS PCP: LYNNE Allergies and Home Medications Allergies Coded Allergies: No Known Drug Allergies (Unverified , 12/10/21) Patient Home Medication List Home Medication List Reviewed: Yes Escitalopram Oxalate (Lexapro) 5 Mg Tablet, Unknown Dose PO, (Reported) Entered as Reported by: MIKEY DAS on 12/10/21 0651 Last Action: New Order Hydrocodone/Acetaminophen (Hydrocodone-Acetamin 7.5-325) 7.5 Mg-325 Mg Tablet, 1 EACH PO Q4H Prescribed by: JIGAR CHAND on 12/10/21 1207 Discontinued Medications Lorazepam (Ativan) 1 Mg Tablet, 1 MG PO TID PRN for ANXIETY Discontinued Reason: No Longer Taking Prescribed by: MARI SMITH on 03/11/202148 Last Action: Discontinued Montelukast Sodium (Singulair 10 Mg) 10 Mg Tablet, 1 TAB PO DAILY, (Reported) Discontinued Reason: No Longer Taking Entered as Reported by: HASEEB JAVIER on 01/15/132142 Last Action: Discontinued Review of Systems Review of Systems Constitutional: dizziness EENTM: No Symptoms Reported Respiratory: No Symptoms Reported Cardiovascular: No Symptoms Reported Gastrointestinal: See HPI, Abdominal Pain, Diarrhea, Nausea, Vomiting Genitourinary: No Symptoms Reported Musculoskeletal: no symptoms reported Skin: no symptoms reported Psychiatric/Neurological: See HPI, Anxiety, Headache Endocrine: No Symptoms Reported Hematologic/Lymphatic: No Symptoms Reported Past Qxlvoqv-Yihsbh-Nbhakl Hx Patient Social History Tobacco Use?: Yes Substance use?: Yes Substance type: Marijuana Substance frequency: Daily Alcohol Use?: Yes Alcohol Frequency: Once in a while Pt feels they are or have been: No Immunizations Up To Date Tetanus Booster (TDap): Unknown First/Initial COVID19 Vaccinat: unvaccinated Seasonal Allergies Seasonal Allergies: No Past Medical History Surgery/Hospitalization HX: T/A, ANXIETY, DEPRESSION Surgeries: Yes Adenoidectomy, Tonsillectomy Respiratory: Yes Asthma, Pneumonia Cardiac: No Neurological: No Genitourinary: No Gastrointestinal: Yes Chronic Constipation Musculoskeletal: No Endocrine: No HEENT: Yes (S/P T&A) Cancer: No Psychosocial: Yes Anxiety, Depression Integumentary: No Blood Disorders: No Adverse Reaction/Blood Tranf: No Physical Exam Vital Signs Vital Signs - First Documented 12/10/21 06:40 Temp 36.6 Pulse 113 Resp 20 B/P (MAP) 144/94 (111) Pulse Ox 97 O2 Delivery Room Air Capillary Refill : Less Than 3 Seconds Height/Weight/BMI Height: 5'5" Weight: 170lbs. oz. 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 as tested, no motor/sensory deficits, alert, oriented x 3 Skin: normal color, warm/dry; No rash Focused Exam Sepsis Stage: Sepsis Possible Source: GI Tract/Intra-Abdominal Lactate Level 12/10/21 08:40: Lactic Acid Level 1.96 Time of Focused Exam: 08:50 Respiratory: Normal Breath Sounds, No Accessory Muscle Use, No Respiratory Distress Cardiovascular: Regular Rate, Rhythm, No Murmur Capillary Refill: Less Than 3 Seconds Skin: normal color, warm/dry Lactic Acid Level Laboratory Tests Test 12/10/21 08:40 Lactic Acid Level 1.96 MMOL/L (0.50-2.00) Within 3hrs of presentation: Admin fluids, Admin ABX, Blood cultures prior to ABX's, Focus exam, Lactate level Progress/Results/Core Measures Results/Orders Lab Results Laboratory Tests Test 12/10/21 07:26 12/10/21 08:05 12/10/21 08:29 12/10/21 08:40 Range/Units Urine Color YELLOW Urine Clarity SL CLOUDY Urine pH 6.0 5-9 Urine Specific Abrams >=1.030 1.016-1.022 Urine Protein 1+ H NEGATIVE Urine Glucose (UA) NEGATIVE NEGATIVE Urine Ketones NEGATIVE NEGATIVE Urine Nitrite NEGATIVE NEGATIVE Urine Bilirubin NEGATIVE NEGATIVE Urine Urobilinogen 1.0 < = 1.0 MG/DL Urine Leukocyte Esterase NEGATIVE NEGATIVE Urine RBC (Auto) NEGATIVE NEGATIVE Urine RBC RARE /HPF Urine WBC RARE /HPF Urine Crystals PRESENT H /LPF Urine Amorphous Sediment MOD SUMIT URATES H /LPF Urine Bacteria NEGATIVE /HPF Urine Casts NONE /LPF Urine Mucus SMALL H /LPF Urine Culture Indicated NO Urine Opiates Screen NEGATIVE NEGATIVE Urine Oxycodone Screen NEGATIVE NEGATIVE Urine Methadone Screen NEGATIVE NEGATIVE Urine Propoxyphene Screen NEGATIVE NEGATIVE Urine Barbiturates Screen NEGATIVE NEGATIVE Ur Tricyclic Antidepressants Screen NEGATIVE NEGATIVE Urine Phencyclidine Screen NEGATIVE NEGATIVE Urine Amphetamines Screen NEGATIVE NEGATIVE Urine Methamphetamines Screen NEGATIVE NEGATIVE Urine Benzodiazepines Screen NEGATIVE NEGATIVE Urine Cocaine Screen NEGATIVE NEGATIVE Urine Cannabinoids Screen POSITIVE H NEGATIVE White Blood Count 21.9 H 4.3-11.0 10^3/uL Red Blood Count 6.54 H 4.30-5.52 10^6/uL Hemoglobin 18.1 H 13.3-17.7 g/dL Hematocrit 53 40-54 % Mean Corpuscular Volume 82 80-99 fL Mean Corpuscular Hemoglobin 28 25-34 pg Mean Corpuscular Hemoglobin Concent 34 32-36 g/dL Red Cell Distribution Width 13.2 10.0-14.5 % Platelet Count 352 130-400 10^3/uL Mean Platelet Volume 9.5 9.0-12.2 fL Immature Granulocyte % (Auto) 1 % Neutrophils (%) (Auto) 86 H 42-75 % Lymphocytes (%) (Auto) 6 L 12-44 % Monocytes (%) (Auto) 5 0-12 % Eosinophils (%) (Auto) 2 0-10 % Basophils (%) (Auto) 1 0-10 % Neutrophils # (Auto) 18.8 H 1.8-7.8 10^3/uL Lymphocytes # (Auto) 1.4 1.0-4.0 10^3/uL Monocytes # (Auto) 1.1 H 0.0-1.0 10^3/uL Eosinophils # (Auto) 0.3 0.0-0.3 10^3/uL Basophils # (Auto) 0.1 0.0-0.1 10^3/uL Immature Granulocyte # (Auto) 0.1 0.0-0.1 10^3/uL Neutrophils % (Manual) 80 % Lymphocytes % (Manual) 4 % Monocytes % (Manual) 7 % Eosinophils % (Manual) 2 % Basophils % (Manual) 0 % Band Neutrophils 2 % Reactive Lymphocytes 5 % Blood Morphology Comment NORMAL Sodium Level 142 135-145 MMOL/L Potassium Level 3.6 3.6-5.0 MMOL/L Chloride Level 108 H 98-107 MMOL/L Carbon Dioxide Level 17 L 21-32 MMOL/L Anion Gap 17 H 5-14 MMOL/L Blood Urea Nitrogen 16 7-18 MG/DL Creatinine 0.88 0.60-1.30 MG/DL Estimat Glomerular Filtration Rate 125 BUN/Creatinine Ratio 18 Glucose Level 121 H 70-105 MG/DL Calcium Level 9.8 8.5-10.1 MG/DL Corrected Calcium 8.5-10.1 MG/DL Total Bilirubin 0.8 0.1-1.0 MG/DL Aspartate Amino Transf (AST/SGOT) 19 5-34 U/L Alanine Aminotransferase (ALT/SGPT) 27 0-55 U/L Alkaline Phosphatase 67 40-136 U/L Total Protein 7.4 6.4-8.2 GM/DL Albumin 4.8 H 3.2-4.5 GM/DL Amylase Level 77 25-125 U/L Lipase 24 8-78 U/L Serum Alcohol < 10 <10 MG/DL Procalcitonin 0.12 H <0.10 NG/ML Lactic Acid Level 1.96 0.50-2.00 MMOL/L Micro Results Microbiology 12/10/21 Fecal Leukocyte Stain - Final, Resulted 12/10/21 C. difficile GDH Antigen & Toxins - Final, Resulted 12/10/21 Stool Culture, Resulted Pending My Orders Orders - KATLIN STARR DO Ed Iv/Invasive Line Start (12/10/21 07:18) Alcohol (12/10/21 07:18) Amylase (12/10/21 07:18) Cbc With Automated Diff (12/10/21 07:18) Comprehensive Metabolic Panel (12/10/21 07:18) Drug Screen Stat (Urine) (12/10/21 07:18) Lipase (12/10/21 07:18) Ua Culture If Indicated (12/10/21 07:18) Ed Iv/Invasive Line Start (12/10/21 07:35) Lactated Ringers (Lr 1000 Ml Iv Solution (12/10/21 07:45) Ondansetron Injection (Zofran Injectio (12/10/21 07:45) Hyoscyamine Sl Tablet (Levsin Sl Tablet) (12/10/21 07:45) Stool Culture (12/10/21 07:35) Fecal Wbc (12/10/21 07:35) Parasite Complete Exam Stool (12/10/21 07:35) C Difficile Ag + Toxin A/B. (12/10/21 07:35) Isolation Central Supply Req (12/10/21 07:35) Ct Abd/Pelv W (Appendicitis) (12/10/21 07:43) Manual Differential (12/10/21 08:05) Lactic Acid Analyzer (12/10/21 08:29) Procalcitonin (Pct) (12/10/21 08:29) Blood Culture (12/10/21 08:29) Iohexol Injection (Omnipaque 350 Mg/Ml 1 (12/10/21 08:45) Received Contrast (Hold Metformin- Contr (12/10/21 08:45) Ns (Ivpb) (Sodium Chloride 0.9% Ivpb Bag (12/10/21 08:45) Medications Given in ED Current Medications Medications Dose Ordered Sig/[place] Route Start Time Stop Time Status Last Admin Dose Admin Hyoscyamine Sulfate 0.25 mg ONCE ONCE SL 12/10/21 07:45 12/10/21 07:47 DC 12/10/21 08:10 0.25 MG Iohexol 100 ml ONCE ONCE IV 12/10/21 08:45 12/10/21 08:46 DC 12/10/21 10:15 100 ML Lactated Ringer's 1,000 ml @ 0 mls/hr Q0M ONCE IV 12/10/21 07:45 12/10/21 07:47 DC 12/10/21 08:10 1,000 MLS/HR Ondansetron HCl 8 mg ONCE ONCE IVP 12/10/21 07:45 12/10/21 07:47 DC 12/10/21 08:10 8 MG Sodium Chloride 100 ml ONCE ONCE IV 12/10/21 08:45 12/10/21 08:46 DC 12/10/21 10:15 100 ML Vital Signs/I&O 12/10/21 06:40 Temp 36.6 Pulse 113 Resp 20 B/P (MAP) 144/94 (111) Pulse Ox 97 O2 Delivery Room Air Blood Pressure Mean: 111 Progress Progress Note : Progress Note SEPSIS PROTOCOL INITIATED ON RECEIVING CBC RESULTS GIVEN IV FLUIDS, ZOFRAN, PHENERGAN + BENADRYL, LEVSIN, AND FENTANYL SYMPTOMS IMPROVED AT TIME OF ADMIT NO DETERIORATION IN PT'S CONDITION DURING ER STAY DISCUSSED WITH PT AND HIS MOTHER ON SPEAKER PHONE REGARDING CHRONIC MARIJUANA USE, AND ADVISED THAT ALL OF HIS CHRONIC SYMPTOMS OF NAUSEA/VOMITING/ABDOMINAL PAIN MAY NOT RESOLVED WITH CHOLECYSTECTOMY, AND NEED TO STOP MARIJUANA USE NOW AND COMPLETELY FOREVER. Diagnostic Imaging Comments CT ABDOMEN/PELVIS--PER RADIOLOGIST REPORT AT 0855 Discussion: Lung bases are well aerated. Normal heart size. No pleural or pericardial fluid. Cholelithiasis is now present. Fatty infiltration of the liver is noted. The stomach, pancreas, spleen, and adrenal glands are unremarkable. No renal stone or hydronephrosis. The appendix is normal. Bladder is decompressed. Prostate is normal in size. The remainder of the large and small bowel loops appear within normal limits. Shotty-appearing mesenteric lymph nodes are present. No ascites. No acute osseous abnormality identified. Impression: 1. Fatty infiltration of the liver. 2. Cholelithiasis. Reviewed: Reviewed by Ar Departure Communication (Admissions) 0911--SPOKE WITH DR. CHAND, SURGEON. ACCEPTS PT FOR ADMIT. ORDERS NOTED. Impression Primary Impression: Cholelithiasis Additional Impressions: Sepsis CHRONIC MARIJUANA USE Disposition: ADMITTED INPATIENT Condition: Stable Admissions Decision to Admit Reason: Admit from ER (General) Decision to Admit/Date: December 10, 2021 Time/Decision to Admit Time: 09:05 Departure-Patient Inst. Referrals: [facility] (PCP/Family) Primary Care Physician Scripts Hydrocodone/Acetaminophen (Hydrocodone-Acetamin 7.5-325) 7.5 Mg-325 Mg Tablet 1 EACH PO Q4H, #35 TAB Prov: JIGAR CHAND MD 12/10/21 KATLIN STARR DO December 10, 2021 08:51
[2021-12-10 09:14] LABS: BAND NEUTROPHILS 2 %; BASOPHILS % (MANUAL) 0 %; EOSINOPHILS % (MANUAL) 2 %; LYMPHOCYTES % (MANUAL) 4 %; MONOCYTES % (MANUAL) 7 %; NEUTROPHILS % (MANUAL) 80 %; REACTIVE LYMPHOCYTES 5 %
[2021-12-10 09:15] LABS: RBC MORPH NORMAL
[2021-12-10] MEDS ORDERED: CIPROFLOXACIN IV 400MG/200ML 200 ML IV ONE (09:15)
[2021-12-10] MEDS ORDERED: fentaNYL INJ 100 MCG/2 ML AMP IVP ONE (09:15)
[2021-12-10] MEDS ORDERED: metroNIDAZOLE 500MG/100ML IVPB 100 ML IV ONE (09:15)
[2021-12-10] MEDS ORDERED: diphenhydrAMINE 50 MG/ML INJ (BENADRYL) IVP ONE (10:15)
[2021-12-10] MEDS ORDERED: PROMETHAZINE INJ 25 MG/ML (PHENERGAN) AMP IVP ONE (10:15)
[2021-12-10] MEDS ORDERED: D5 1/2 NS W/KCL 20 MEQ/L 1,000 ML IV ONE (11:29)
[2021-12-10] MEDS: D5 1/2 NS W/KCL 20 MEQ/L 1,000 ML IV SCH ×2 (11:38→18:33)
[2021-12-10 12:00] VITALS: BP 100/66
[2021-12-10] MEDS: morphine INJ 4 MG/ML 1 ML (VIAL/SYRINGE) IVP PRN (12:03)
[2021-12-10] MEDS ORDERED: HYDR-3817 PO (12:07)
--- NOTE | 2021-12-10 12:08 | Discharge Inst-Surgical ---
D/C Lap Instructions-JAGRUTI New, Converted, or Re-Newed RX: RX on Chart Follow Up Appt in 2 weeks Activity as tolerated No driving for 24 hours No driving while on pain medications Incentive Spirometry use every 2 hours while awake Regular Diet Symptoms to Report: Fever over 101 degree F, Nausea/Vomiting Infection Signs and Symptoms to report: Increased redness, Foul odor of wound, Increased drainage Bathing instructions: May shower Operative Area Clean/Dry; Keep incision clean/dry If any problems/questions: Contact your physician or go to Emergency Room JIGAR CHAND MD December 10, 2021 12:08
--- NOTE | 2021-12-10 13:43 | HISTORY AND PHYSICAL ---
DATE OF SERVICE: DATE OF ADMISSION: 12/10/2021. ATTENDING PRIMARY CARE PHYSICIAN: [facility]. HISTORY OF PRESENT ILLNESS: The patient is a 21-year-old male who presented early in the morning with pain in the right upper abdominal quadrant with radiation towards the back with associated nausea and vomiting. He states that he has had intermittent episodes of this type of pain now for the past few years. He states that he ate a cheeseburger late at night and this was followed by the pain and nausea and vomiting. A CT scan was performed, which did significant amount of gallstones. PAST MEDICAL HISTORY: Asthma, history of pneumonia, anxiety. PAST SURGICAL HISTORY: None. ALLERGIES: No known drug allergies. MEDICATIONS: Escitalopram 5 mg daily. SOCIAL HISTORY: Positive smoke, positive alcohol, positive marijuana. FAMILY HISTORY: Noncontributory. VITAL SIGNS: Temperature 36.6, blood pressure 144/94, pulse 113, respirations 97, pulse ox 97% on room air. REVIEW OF SYSTEMS: Well-nourished male, currently in no acute distress. He is not experiencing any shortness of breath or difficulty breathing. No chest pain, palpitations, diaphoresis. Intermittent nausea, vomiting with pain in the right upper abdominal quadrant with radiation towards the back. No diarrhea, constipation, no red blood per rectum, no dark tarry stools. No fever, chills, no recent inadvertent weight loss. All other review of systems negative. PHYSICAL EXAMINATION: CHEST: Clear. Good breath sounds bilaterally. HEART: Regular, no murmurs. EXTREMITIES: No lower extremity edema, negative Homans sign. HEENT: No scleral icterus. NECK: No cervical lymphadenopathy. ABDOMEN: Soft, nondistended. There is pain in the right upper abdominal quadrant with voluntary guarding, no rebound. SKIN: Warm, dry. LABORATORY DATA: WBC 21.9, hemoglobin 18.1, hematocrit 53, platelets 352. BUN 16, creatinine 0.88. Liver function enzymes are normal. ASSESSMENT AND PLAN: A 21-year-old male with symptomatic chronic calculous cholecystitis. The natural history of gallbladder disease was explained to the patient including the risks and benefits of surgery and he is in full understanding of this and would like to proceed with a laparoscopic cholecystectomy, which we will schedule on this admission. Job ID: [id number] DocumentID: [id number] Dictated Date: 12/10/2021 12:04:20 Machine Clipper Date: 12/10/2021 13:43:04 Dictated By: JIGAR CHAND MD
--- NOTE | 2021-12-10 16:05 | Progress Note-Pre Operative ---
Pre-Operative Progress Note H&P Reviewed The H&P was reviewed, patient examined and no changes noted. Date Seen by Provider: December 10, 2021 Time Seen by Provider: 16:10 Date H&P Reviewed: December 10, 2021 Time H&P Reviewed: 16:10 Pre-Operative Diagnosis: acute on chronic calculous cholecystitis JIGAR CHAND MD December 10, 2021 16:05
[2021-12-10 16:30] VITALS: BP 122/74
[2021-12-10] MEDS: HYDROcodone/APAP 5 MG/325 MG (LORTAB) TAB PO PRN (17:15)
[2021-12-10] MEDS: ALPRAZolam 1 MG (XANAX) TAB PO PRN (20:08)
[2021-12-10] MEDS: metroNIDAZOLE 500 MG/100 ML IVPB (PRE-MIX) IV SCH (20:08)
[2021-12-10 20:43] VITALS: BP 104/64
[2021-12-10] MEDS: CIPROFLOXACIN 400 MG/D5W 200 ML (PRE-MIX) IV SCH (22:11)
[2021-12-11] VITALS (15 sets, daily range): BP systolic 99–148; BP diastolic 48–86
[2021-12-11] MEDS: D5 1/2 NS W/KCL 20 MEQ/L 1,000 ML IV SCH ×4 (01:06→21:35)
[2021-12-11] MEDS: ALPRAZolam 1 MG (XANAX) TAB PO PRN ×2 (04:20→19:43)
[2021-12-11 06:29] LABS: BASOPHILS % (AUTO) 0 % (0-10); EOSINOPHILS # (AUTO) 0.4 10^3/uL (0.0-0.3); EOSINOPHILS % (AUTO) 5 % (0-10); HEMATOCRIT 46 % (40-54); HEMOGLOBIN 15.2 g/dL (13.3-17.7); LYMPHOCYTES # (AUTO) 1.6 10^3/uL (1.0-4.0); LYMPHOCYTES % (AUTO) 20 % (12-44); MEAN CORPUSCULAR HEMOGLOBIN 28 pg (25-34); MEAN CORPUSCULAR HGB CONC 33 g/dL (32-36); MEAN CORPUSCULAR VOLUME 85 fL (80-99); MEAN PLATELET VOLUME 9.8 fL (9.0-12.2); MONOCYTES # (AUTO) 0.7 10^3/uL (0.0-1.0); MONOCYTES % (AUTO) 9 % (0-12); NEUTROPHILS # (AUTO) 5.1 10^3/uL (1.8-7.8); NEUTROPHILS % (AUTO) 65 % (42-75); PLATELET COUNT 247 10^3/uL (130-400); WHITE BLOOD COUNT 7.8 10^3/uL (4.3-11.0)
[2021-12-11 06:44] LABS: POTASSIUM 3.9 MMOL/L (3.6-5.0)
[2021-12-11 06:45] LABS: CALCIUM 8.5 MG/DL (8.5-10.1)
[2021-12-11 06:50] LABS: CREATININE SERUM 0.81 MG/DL (0.60-1.30)
--- NOTE | 2021-12-11 07:46 | Physician Query Clarification ---
PQ-Uncertain Diagnosis Admission/Discharge Admission Date: December 10, 2021 at 09:03 Discharge Date: Dr. Chand, The medical record reflects the following clinical scenario: History/Risk Factors: chronic cholecystitis w/cholelithiasis Clinical Findings: T 36.6, P 113, R 20, WBC 21.9, Lactic 1.96 Treatment: IV Cipro, IV Metronidazole Question: Is sepsis a clinically valid diagnosis? Sepsis was documented in the ER record with no further documentation in the medical record. Please document a response in Progress Note or Discharge Summary. 1. Yes, clinically valid, condition resolved. 2. No, condition ruled out. 3. Other, with explanation of clinical findings. 4. Undetermined, no explanation for clinical findings. PHYSICIAN RESPONSE Diagnosis clinically valid: No, conditon ruled out Please remember a lack of response to the above will prompt a phone page by CDI/Coding staff. In responding to this query, please exercise your independent professional ju dgment. The purpose of this communication is to more accurately reflect the complexity of your patients condition. The fact that a question is asked does not imply that any particular answer is desired or expected. Thank you for your timely response to this clarification. Requestors name: Alonso THIS PHYSICIAN QUERY FORM IS A PERMANENT PART OF THE MEDICAL RECORD ALONSO HARVEY December 11, 2021 07:46 JIGAR CHAND MD December 11, 2021 16:29
[2021-12-11] MEDS: metroNIDAZOLE 500 MG/100 ML IVPB (PRE-MIX) IV SCH ×2 (09:51→20:45)
[2021-12-11] MEDS: CIPROFLOXACIN 400 MG/D5W 200 ML (PRE-MIX) IV SCH ×2 (10:43→22:19)
[2021-12-11] MEDS ORDERED: LIDOCAINE/EPI 2% 1:100,00 (XYLOCAINE) 20 ML VIAL ONE (13:29)
[2021-12-11] MEDS ORDERED: fentaNYL INJ 100 MCG/2 ML AMP ONE ×2 (15:36→16:51)
[2021-12-11] MEDS ORDERED: morphine INJ 10 MG/ML 1ML (SYR OR VIAL) ONE (15:36)
[2021-12-11] MEDS ORDERED: ONDANSETRON 4 MG/2 ML (SDV) Z0FRAN ONE ×2 (15:36→16:51)
[2021-12-11] MEDS ORDERED: MEPERIDINE (DEMEROL) INJ 50 MG/ML ONE (15:36)
[2021-12-11] MEDS: morphine INJ 4 MG/ML 1 ML (VIAL/SYRINGE) IVP PRN ×2 (16:04→19:43)
[2021-12-11] MEDS: ONDANSETRON 4 MG/2 ML (SDV) Z0FRAN IV PRN ×2 (16:04→22:08)
--- NOTE | 2021-12-11 16:48 | Progress Note-Pre Operative ---
Pre-Operative Progress Note H&P Reviewed The H&P was reviewed, patient examined and no changes noted. Date Seen by Provider: December 11, 2021 Time Seen by Provider: 16:40 Date H&P Reviewed: December 11, 2021 Time H&P Reviewed: 16:48 Pre-Operative Diagnosis: Acute on chronic calculous cholecystitis XANDER MINOR APRN December 11, 2021 16:48
[2021-12-11] MEDS ORDERED: SEVOFLURANE (ULTANE) 15 ML INHAL SOLN ONE ×2 (16:51→17:22)
[2021-12-11] MEDS ORDERED: LIDOCAINE PF 2% 5 ML (XYLOCAINE) VIAL ONE (16:51)
[2021-12-11] MEDS ORDERED: MIDAZOLAM 2 MG/2 ML (VERSED) VIAL ONE (16:51)
[2021-12-11] MEDS ORDERED: proPOfol 200 MG/20 ML (DIPRIVAN) VIAL IV ONE (16:51)
[2021-12-11] MEDS ORDERED: ONDANSETRON 4 MG/2 ML (SDV) Z0FRAN IVP PRN (17:00)
[2021-12-11] MEDS ORDERED: LACTATED RINGERS 1,000 ML IV PRN (17:00)
[2021-12-11] MEDS ORDERED: fentaNYL INJ 100 MCG/2 ML AMP IVP ONE (17:00)
[2021-12-11] MEDS: LACTATED RINGERS 1,000 ML IV PRN ×2 (17:08→17:36)
[2021-12-11] MEDS ORDERED: ATROPINE INJ 0.4 MG/ML SDV ONE (17:30)
[2021-12-11] MEDS ORDERED: NEOSTIGMINE 3 MG/3 ML VIAL ONE (18:00)
[2021-12-11] MEDS ORDERED: GLYCOPYRROLATE 0.2 MG/ML (ROBINUL) 2 ML VIAL ONE (18:00)
[2021-12-11] MEDS ORDERED: ROCURONIUM 50 MG/5 ML (ZEMURON) VIAL IV ONE (18:06)
--- NOTE | 2021-12-11 18:10 | Progress Note-Post Operative ---
Post-Operative Progess Note Surgeon (s)/Service Delivery Supervisor (s) Surgeon JIGAR CHAND MD Service Delivery Supervisor: andrew keane [employer] TECHNICIAN Pre-Operative Diagnosis Acute on chronic calculous cholecystitis Post-Operative Diagnosis same Procedure & Operative Findings Date of Procedure 12/11/21 Procedure Performed/Findings laparoscopic cholecystectomy. Anesthesia Type get Estimated Blood Loss Estimated blood loss (mL): 50ml Specimens/Packing Specimens Removed gallbladder JIGAR CHAND MD December 11, 2021 18:10
[2021-12-11] MEDS: MEPERIDINE (DEMEROL) INJ 50 MG/ML IVP ONE ×2 (18:39→18:56)
[2021-12-11] MEDS: morphine INJ 10 MG/ML 1ML (SYR OR VIAL) IVP ONE ×2 (18:48→19:13)
[2021-12-11] MEDS: HYDROcodone/APAP 5 MG/325 MG (LORTAB) TAB PO PRN ×2 (20:04→23:47)
[2021-12-11] MEDS ORDERED: HYDROmorphone 2 MG/ML VIAL (DILAUDID) ONE (20:42)
[2021-12-11] MEDS ORDERED: HYDROmorphone 2 MG/ML VIAL (DILAUDID) IV ONE (20:45)
[2021-12-11] MEDS: HYDROmorphone 2 MG/ML VIAL (DILAUDID) IVP PRN (22:08)
--- NOTE | 2021-12-11 23:11 | OPERATIVE REPORT ---
DATE OF SERVICE: 12/11/2021 ATTENDING STEAM SHOVEL OPERATING ENGINEER: [facility]. PREOPERATIVE DIAGNOSIS: Nyoev-cd-qeokkik calculous cholecystitis. POSTOPERATIVE DIAGNOSIS: Cbwrs-ik-yjnodof calculous cholecystitis. PROCEDURE: Laparoscopic cholecystectomy. SURGEON: Jigar Chand MD TUBE REPAIRER: Solitario Egan APRN. ANESTHESIA: General endotracheal. ESTIMATED BLOOD LOSS: 50 mL. FINDINGS: Thickened gallbladder wall, two large gallstones. DISPOSITION: The patient tolerated the procedure well. INDICATIONS: The patient is a 21-year-old male who presented with right upper abdominal quadrant pain with radiation towards the back and was associated with nausea and vomiting. He states that he has had some mild intermittent episodes of pain; symptoms similar to this; however, never this severe. A CT scan was performed, which did show significant gallstones. DESCRIPTION OF PROCEDURE: The patient was brought to the operating room, laid supine on the table. After adequate IV pain and sedative medications and general endotracheal intubation, the abdomen was prepped and draped in standard surgical fashion. A 0.5% Marcaine with epinephrine was used to anesthetize overlying skin in left upper abdominal quadrant and a transverse skin incision made using a 15 blade. An 0 silk suture was applied to the medial aspect of incision for retraction and Veress needle inserted with a low opening pressure of 0 mmHg. The abdomen was then insufflated to 15 mmHg pressure. The Veress needle was removed and a 5 mm XL trocar placed followed by a 5 mm 45-degree angle laparoscope visualizing the peritoneal cavity. A 4-quadrant abdominal exploration was performed. There was a distended gallbladder with mild gallbladder wall thickening. Under direct visualization, we then proceeded to place a supraumbilical 10 mm port after the skin and peritoneal lining were anesthetized using 0.5% Marcaine with epinephrine and a transverse skin incision made using a 15 blade. In a similar manner, a right upper abdominal quadrant 5 mm port was placed. The patient was then placed in reverse Trendelenburg position as well as plane right side up, left side down. Fundus of the gallbladder was then retracted anteriorly and superiorly. The hepatoduodenal ligament was then opened using blunt dissection as well as electrocautery on hook instrument as well as a [place] dissector. The entire critical view of safety was identified including the triangle of Calot as well as the cystic duct and artery as the only two structures going to gallbladder as well as the cystic plate behind the proximal gallbladder. A timeout was then taken and the cystic duct and artery were then clipped proximally and distally and cut with EndoShears. The gallbladder was then dissected off the liver bed using cautery on hook instrument with visualization of good hemostasis as well as no leaking ducts of Luschka. The gallbladder was removed through the 10 mm port site using an EndoCatch bag. The 10 mm port site fascia and peritoneum were then closed under direct visualization using a Frank-Cass device and an 0 Vicryl suture. The abdomen was desufflated and remaining ports removed. All skin incisions were closed using 4-0 Monocryl running subcuticular sutures. Wounds were then cleaned and covered with Dermabond. The patient tolerated the procedure well. We will start IV normal pain medication as well as a clear liquid diet. Once he is tolerating clears, has good pain control with oral pain medications, is ambulating well, we will discharge him home where he will be instructed to do no heavy lifting or exertion for the next two weeks. Job ID: [id number] DocumentID: [id number] Dictated Date: 12/11/2021 20:16:45 Limousine And Hearse Upholsterer Date: 12/11/2021 23:10:15 Dictated By: JIGAR CHAND MD
[2021-12-12] MEDS: HYDROmorphone 2 MG/ML VIAL (DILAUDID) IVP PRN ×2 (00:24→02:38)
[2021-12-12] MEDS: ONDANSETRON 4 MG/2 ML (SDV) Z0FRAN IV PRN ×2 (02:38→06:02)
[2021-12-12] MEDS: D5 1/2 NS W/KCL 20 MEQ/L 1,000 ML IV SCH ×2 (03:21→10:02)
[2021-12-12 04:00] VITALS: BP 101/55
[2021-12-12 08:00] VITALS: BP 97/53
[2021-12-12] MEDS: HYDROcodone/APAP 5 MG/325 MG (LORTAB) TAB PO PRN ×2 (08:06→12:21)
[2021-12-12] MEDS: metroNIDAZOLE 500 MG/100 ML IVPB (PRE-MIX) IV SCH (08:07)
[2021-12-12] MEDS ORDERED: CALCIUM CARBONATE 500 MG (TUMS) TAB.CHEW PO PRN (08:45)
--- NOTE | 2021-12-12 09:15 | Anesthesia-General Post-Op ---
General Patient Condition Mental Status/LOC: Same as Preop Cardiovascular: Satisfactory Nausea/Vomiting: Absent Respiratory: Satisfactory Pain: Controlled Complications: Absent Post Op Complications Complications None Follow Up Care/Instructions Patient Instructions None needed. Anesthesia/Patient Condition Patient Condition Patient is doing well, no complaints, stable vital signs, no apparent adverse anesthesia problems. No complications reported per nursing. ILANA HIGGINBOTHAM CRNA December 12, 2021 09:15
[2021-12-12] MEDS: CIPROFLOXACIN 400 MG/D5W 200 ML (PRE-MIX) IV SCH (10:05)
[2021-12-12] MEDS: morphine INJ 4 MG/ML 1 ML (VIAL/SYRINGE) IVP PRN (10:09)
[2021-12-12] MEDS: ALPRAZolam 1 MG (XANAX) TAB PO PRN (10:09)
[2021-12-12 12:00] VITALS: BP 112/66
[2021-12-12] MEDS ORDERED: TRM50T PO (12:38)
== END 2021-12-12 14:01 | disposition home or self-care (01) ==
LOC: EDUNIT# 06:32 → ER 06:33 → 4TH 09:03 → INTOOBSV 09:03
PROVIDERS: ADMIT Surgery; ATTEND Surgery
DX: K80.12 Calculus of gallbladder with acute and chronic cholecystitis without obstruction (principal); E66.9 Obesity, unspecified; F17.290 Nicotine dependence, other tobacco product, uncomplicated; F12.90 Cannabis use, unspecified, uncomplicated; Z79.899 Other long term (current) drug therapy; Z68.38 Body mass index [BMI] 38.0-38.9, adult
CPT/HCPCS: 36415; 74177; 80048; 80053; 80306; 80320; 81000; 82150; 83605; 83690; 84145; 85007; 85025; 85027; 87015; 87040; 87045; 87046; 87177; 87324; 87449; 87636; 87899; 88304; 89055; 96365; 96374; 96375; 96376; G0378

== ENCOUNTER 2022-08-31 22:00 | Emergency (ER) | payer MEDICAID ==
[~2022-08-31] VITALS: Ht 172.7 cm; Wt 103.0 kg
[~2022-08-31 22:00] MED LIST changes: +ESCI5TAB PO; +HYDR-3817 PO; +TRM50T PO
--- NOTE | 2022-08-31 22:42 | ED Headache ---
General Chief Complaint: Head/Cervical Problems Stated Complaint: PAIN IN HEAD, VISION CHANGE Nursing Triage Note: PT AMB TO ED BY POV WITH C/O R SIDED HEAD PAIN X 2 WEEKS. PT REPORTS PAIN SHOOTS "BURNING SENSATION" FROM THE R SIDE OF HIS HEAD DOWN THROUGH HIS NECK. WHEN HE HAS THIS PAIN, HE ALSO HAS NAUSEA, DIZZINESS, AND BLURRY VISION. PT REPORTS HE HAS A CONSTANT PRESSURE IN HIS HEAD. Source: patient (PT TALKS NON-STOP AT LENGTH, AND WILL NOT ALLOW ME TO ASK ANY QUESTIONS.) History of Present Illness Date Seen by Provider: Aug 31, 2022 Time Seen by Provider: 22:35 Initial Comments PT ARRIVES VIA POV FROM HOME C/O HEADACHE FOR THE LAST 2 YEARS PAIN IS ON RIGHT SIDE OF HIS HEAD AND RADIATES BACK TO HIS NECK PAIN IS CONSTANT--STATES "IT'S NOT A FEELING-IT'S REAL PAIN" "IT'S AFFECTING MY EVERYDAY LIFE" "SOME OF MY SYMPTOMS DEFINITELY ARE PANIC ATTACKS BUT IT'S BECAUSE OF MY HEAD" NO RECENT INJURY OR ILLNESS. HE DID HIT HIS HEAD ON A BRICK WALL WHEN HE WAS IN HIGH SCHOOL. NO LOSS OF CONSCIOUSNESS, AND WAS NOT HAVING THIS PROBLEM AFTER THAT INJURY. HE STATES SOMETIMES HE HAS NAUSEA, NOT NOW SOMETIMES HIS VISION IS BLURRY. NOT NOW SOMETIMES HE IS DIZZY. NOT NOW STATES "NOTHING HELPS" , BUT HE HAS NOT TAKEN ANYTHING FOR PAIN RECENTLY STATES HE HAS BEEN TO [facility] AND HERE IN ER "MULTIPLE TIMES" FOR THIS PROBLEM PT IS DEMANDING A SCAN OF HIS HEAD ON ARRIVAL. HAS BEEN PRESCRIBED MEDICATION FOR ANXIETY IN THE PAST, BUT HAS NOT TAKEN ANY FOR OVER A YEAR. DID NOT LIKE THE WAY IT MADE HIM FEEL PCP: [facility] Allergies and Home Medications Allergies Coded Allergies: No Known Drug Allergies (Unverified , 12/10/21) Patient Home Medication List Home Medication List Reviewed: Yes Cyclobenzaprine HCl (Cyclobenzaprine HCl) 10 Mg Tablet, 10 MG PO Q8H PRN for SPASMS Prescribed by: KATLIN STARR on 08/31/222321 Escitalopram Oxalate (Lexapro) 5 Mg Tablet, Unknown Dose PO, (Reported) Entered as Reported by: MIKEY DAS on 12/10/21 0651 Meloxicam (Meloxicam) 15 Mg Tablet, 15 MG PO DAILY Prescribed by: KATLIN STARR on 1/20/23 2322 Tramadol HCl (Tramadol HCl) 50 Mg Tablet, 50 MG PO Q4H PRN for PAIN-MODERATE (5- 7) Prescribed by: SURINDER BIRD on 12/12/21 1238 Review of Systems Review of Systems Constitutional: see HPI, dizziness Eyes: See HPI, Vision Changes Ears, Nose, Mouth, Throat: no symptoms reported Respiratory: no symptoms reported Cardiovascular: no symptoms reported Gastrointestinal: see HPI; No abdominal pain, No diarrhea; nausea; No vomiting Genitourinary: no symptoms reported Musculoskeletal: see HPI, neck pain Skin: no symptoms reported Psychiatric/Neurological: See HPI, Anxiety, Headache; Denies Numbness, Denies Paresthesia, Denies Tingling, Denies Weakness Past Ublnjlj-Vxlkxe-Dyldze Hx Patient Social History Tobacco Use?: Yes Tobacco type used: Cigarettes Smoking Status: Current Everyday Smoker Use of E-Cig and/or Vaping dev: No Substance use?: Yes Substance type: Marijuana Substance frequency: Daily Alcohol Use?: No Pt feels they are or have been: No Immunizations Up To Date Tetanus Booster (TDap): Unknown Influenza Vaccine Up-to-Date: No; Not Current First/Initial COVID19 Vaccinat: unvaccinated Second COVID19 Vaccination Edwin: unvaccinated Third COVID19 Vaccination Date: unvaccinated Seasonal Allergies Seasonal Allergies: No Past Medical History Surgeries: Yes Adenoidectomy, Gallbladder, Tonsillectomy Respiratory: Yes Asthma, Pneumonia Currently Using CPAP: No Currently Using BIPAP: No Cardiac: No Neurological: Yes Headaches /Migraines Genitourinary: No Gastrointestinal: Yes Chronic Constipation Musculoskeletal: No Endocrine: No HEENT: Yes (S/P T&A) Cancer: No Psychosocial: Yes Anxiety, Depression Integumentary: No Blood Disorders: No Adverse Reaction/Blood Tranf: No Family Medical History SOCIAL HISTORY: -SMOKES 1 PPD -ETOH--DENIES USE -DRUGS--SMOKES MARIJUANA DAILY PAST SURGICAL HISTORY: -TONSILLECTOMY/ADENOIDECTOMY -CHOLECYSTECTOMY 12/11/[address] CHAND Physical Exam Vital Signs Vital Signs - First Documented 08/31/22 22:24 Temp 36.1 Pulse 81 Resp 18 B/P (MAP) 140/91 (107) Pulse Ox 98 O2 Delivery Room Air Capillary Refill : Less Than 3 Seconds Height, Weight, BMI Height: 5'5" Weight: 170lbs. oz. [id number]; 34.00 BMI Method:Stated General Appearance: WD/WN, no apparent distress, other (DRAMATIC; ANXIOUS, TALKS NON-STOP) HEENT: PERRL/EOMI, normal ENT inspection, TMs normal, pharynx normal Neck: full range of motion, supple, other (DIFFUSE POSTERIOR NECK MUSCLE TENDERNESS AND MILD SPASMS) Cardiovascular: regular rate, rhythm, no edema, no JVD, no murmur Respiratory: normal breath sounds, no respiratory distress, no accessory muscle use Gastrointestinal: soft Back: no CVA tenderness Extremities: normal inspection Psychiatric: alert, oriented x 3 Crainal Nerves: normal hearing, normal speech, PERRL Coordination/Gait: normal gait Motor/Sensory: no motor deficit, no sensory deficit, no pronator drift Skin: normal color, warm/dry Progress/Results/Core Measures Results/Orders My Orders Orders - KATLIN STARR DO Ct Head/Cervical Spine Wo (08/31/22 22:42) Ketorolac Injection (Toradol Injection) (08/31/22 23:30) Orphenadrine Inj (Ed Only) (Norflex Inje (08/31/22 23:30) Medications Given in ED Current Medications Medications Dose Ordered Sig/[place] Route Start Time Stop Time Status Last Admin Dose Admin Ketorolac Tromethamine 60 mg ONCE ONCE IM 08/31/22 23:30 08/31/22 23:31 DC 08/31/22 23:37 60 MG Orphenadrine Citrate 60 mg ONCE ONCE IM 08/31/22 23:30 08/31/22 23:31 DC 08/31/22 23:36 60 MG Vital Signs/I&O 08/31/22 08/31/22 22:24 23:49 Temp 36.1 36.1 Pulse 81 60 Resp 18 16 B/P (MAP) 140/91 (107) 139/89 Pulse Ox 98 98 O2 Delivery Room Air Room Air Blood Pressure Mean: 107 Progress Progress Note : Progress Note UNEVENTFUL ER STAY GIVEN NORFLEX AND TORADOL REVIEWED PRIOR RECORDS, INCLUDING ER VISITS, ADMITS, H&P, TESTS/PROCEDURES, AND DISCHARGE SUMMARIES. THERE ARE NO VISITS HERE FOR COMPLAINT OF HEADACHE--HE HAD 2 ER VISITS IN 2019 FOR ANXIETY. REVIEWED TEST RESULTS, ANTICIPATED COURSE, MEDICATIONS, NEED FOR FOLLOW UP AND RETURN PRECAUTIONS WITH PT, AND FEMALE IN THE ROOM WITH HIM. Diagnostic Imaging Comments CT HEAD/CERVICAL SPINE--NO ACUTE PROCESS, PER [facility] VIA FAX AT [id number] Reviewed: Reviewed by Me Departure Impression Primary Impression: Chronic headaches Additional Impressions: Tension headache, chronic Anxiety Disposition: 01 HOME, SELF-CARE Condition: Stable Departure-Patient Inst. Decision time for Depature: 23:20 Referrals: [facility] (PCP/Family) Primary Care Physician Patient Instructions: Tension Headache, Anxiety, Adult (DC) Add. Discharge Instructions: HOME, REST LOTS OF CLEAR LIQUIDS FOLLOW UP WITH [facility] NEXT WEEK FOR FURTHER CARE--CALL IN THE MORNING TO SCHEDULE AN APPOINTMENT All discharge instructions reviewed with patient and/or family. Voiced understanding. Scripts Cyclobenzaprine HCl (Cyclobenzaprine HCl) 10 Mg Tablet 10 MG PO Q8H PRN for SPASMS, #15 TAB 0 Refills Prov: KATLIN STARR DO 08/31/22 Meloxicam (Meloxicam) 15 Mg Tablet 15 MG PO DAILY, #10 TAB Prov: KATLIN STARR DO 08/31/22 KATLIN STARR DO Aug 31, 2022 22:42
[2022-08-31] MEDS ORDERED: CYCL10TA25 PO (23:22)
[2022-08-31] MEDS ORDERED: MELO15TA39 PO (23:22)
[2022-08-31] MEDS ORDERED: ORPHENADRINE 60 MG/2 ML (NORFLEX) AMP (ED ONLY) IM ONE (23:30)
[2022-08-31] MEDS ORDERED: KETOROLAC 60 MG/2 ML VIAL IM ONE (23:30)
[2022-08-31 23:49] VITALS: BP 139/89
--- NOTE | 2022-09-01 06:40 | Diagnostic Imaging Report ---
PROCEDURE: CT head and CT cervical spine without contrast. TECHNIQUE: Multiple contiguous axial images were obtained through the brain and cervical spine without the use of intravenous contrast. Sagittal and coronal reformations through the cervical spine were then performed. Auto Exposure Controls were utilized during the CT exam to meet ALARA standards for radiation dose reduction. INDICATION: Headache with visual disturbance, head and neck injury with pain. COMPARISON: None. DISCUSSION: Head: No acute intracranial hemorrhage, mass, midline shift, or hydrocephalus. The orbits, sinuses, mastoid air cells, and calvarium are unremarkable. Polypoid mucosal thickening present within the right maxillary sinus. Cervical spine: No significant degenerative disease. No fracture or subluxation. Alignment is anatomic. Paraspinal soft tissues are unremarkable. IMPRESSION: 1. Negative head CT. 2. Negative cervical spine CT. 3. Agree with preliminary report. Dictated by: Dictated on workstation # [id number]
== END 2022-08-31 23:58 | disposition home or self-care (01) ==
LOC: EDUNIT# 22:00 → ER 22:02
DX: G44.229 Chronic tension-type headache, not intractable (principal); F41.9 Anxiety disorder, unspecified; F17.210 Nicotine dependence, cigarettes, uncomplicated; Z28.310 Unvaccinated for COVID-19
CPT/HCPCS: 70450; 72125

== ENCOUNTER 2022-09-05 12:53 | Emergency (ER) | payer MEDICAID ==
[~2022-09-05 12:53] MED LIST changes: +CYCL10TA25 PO; +MELO15TA39 PO
--- NOTE | 2022-09-05 13:29 | ED Back Pain ---
General Chief Complaint: Back Problems Stated Complaint: LOWER BACK PAIN Nursing Triage Note: PT AMB TO RM 5 WITH C/O BILAT LOWER BACK PAIN WHILE AT WORK AROUND 1000 Source of Information: Patient Exam Limitations: No Limitations (QUIN GROVER APRN) History of Present Illness Date Seen by Provider: Sep 05, 2022 Time Seen by Provider: 13:05 Initial Comments Patient is a 22-year-old male who presents to the emergency department for evaluation of bilateral lower back pain that began at approximately 10:00 today while he was at work. Patient denies any injury prior to the onset of pain. Denies any nausea/vomiting. States he has not urinated today. Last time he urinated was last night. Patient states he has not been drinking much today. Patient endorses some feelings of anxiety as well. Denies any history of back pain. Denies any recent hematuria or pain with urination. Patient has not taken anything for the symptoms since they began. (QUIN GROVER APRN) Allergies and Home Medications Allergies Coded Allergies: No Known Drug Allergies (Unverified , 12/10/21) Patient Home Medication List Home Medication List Reviewed: Yes (QUIN GROVER APRN) Cyclobenzaprine HCl (Cyclobenzaprine HCl) 10 Mg Tablet, 10 MG PO Q8H PRN for SPASMS Prescribed by: KATLIN STARR on 08/31/22 2322 Escitalopram Oxalate (Lexapro) 5 Mg Tablet, Unknown Dose PO, (Reported) Entered as Reported by: MIKEY DAS on 12/10/21 0651 Meloxicam (Meloxicam) 15 Mg Tablet, 15 MG PO DAILY Prescribed by: KATLIN STARR on 08/31/22 2322 Tramadol HCl (Tramadol HCl) 50 Mg Tablet, 50 MG PO Q4H PRN for PAIN-MODERATE (5- 7) Prescribed by: SURINDER BIRD on 12/12/21 1238 Review of Systems Constitutional: no symptoms reported EENTM: no symptoms reported Respiratory: no symptoms reported Cardiovascular: no symptoms reported Gastrointestinal: see HPI Genitourinary: no symptoms reported Musculoskeletal: no symptoms reported Skin: no symptoms reported Psychiatric/Neurological: No Symptoms Reported (QUIN GROVER APRN) Past Wttcolc-Yfbofd-Pmzidi Hx Patient Social History Tobacco Use?: No Use of E-Cig and/or Vaping dev: Yes Substance use?: Yes Substance type: Marijuana Alcohol Use?: Yes Alcohol Frequency: Rarely Pt feels they are or have been: No (QUIN GROVER APRN) Immunizations Up To Date Tetanus Booster (TDap): Unknown Influenza Vaccine Up-to-Date: No; Not Current First/Initial COVID19 Vaccinat: unvaccinated Second COVID19 Vaccination Edwin: unvaccinated Third COVID19 Vaccination Date: unvaccinated (QUIN GROVER APRN) Seasonal Allergies Seasonal Allergies: No (QUIN GROVER APRN) Past Medical History Surgery/Hospitalization HX: [facility] Surgeries: Yes Adenoidectomy, Gallbladder, Tonsillectomy Respiratory: Yes Asthma, Pneumonia Currently Using CPAP: No Currently Using BIPAP: No Cardiac: No Neurological: Yes Headaches /Migraines Genitourinary: No Gastrointestinal: Yes Chronic Constipation Musculoskeletal: No Endocrine: No HEENT: Yes (S/P T&A) Cancer: No Psychosocial: Yes Anxiety, Depression Integumentary: No Blood Disorders: No Adverse Reaction/Blood Tranf: No (QUIN GROVER APRN) Family Medical History SOCIAL HISTORY: -SMOKES 1 PPD -ETOH--DENIES USE -DRUGS--SMOKES MARIJUANA DAILY PAST SURGICAL HISTORY: -TONSILLECTOMY/ADENOIDECTOMY -CHOLECYSTECTOMY 12/11/[address] CHAND (QUIN GROVER APRN) Physical Exam Vital Signs Vital Signs - First Documented 09/05/22 09/05/22 13:05 15:45 Temp 35.9 Pulse 74 Resp 16 B/P (MAP) 137/98 (111) Pulse Ox 98 (MATTY,KATLIN K DO) Vital Signs Capillary Refill : (QUIN GROVER APRN) Height, Weight, BMI Height: 5'5" Weight: 170lbs. oz. 77.012054xw; 34.00 BMI Method:Stated General Appearance: No Apparent Distress, WD/WN HEENT: PERRL/EOMI, TMs Normal, Normal ENT Inspection, Pharynx Normal Neck: Full Range of Motion, Normal Inspection, Non Tender, Supple Cardiovascular: Regular Rate, Rhythm, Normal Peripheral Pulses Respiratory: Chest Non Tender, Lungs Clear, Normal Breath Sounds Gastrointestinal: Non Tender, Soft Neurologic/Psychiatric: Alert, Oriented x3, No Motor/Sensory Deficits, Normal Mood/Affect Skin: Normal Color, Warm/Dry (QUIN GROVER APRN) Progress/Results/Core Measures Results/Orders Lab Results Laboratory Tests Test 09/05/22 13:10 09/05/22 14:20 Range/Units White Blood Count 8.5 4.3-11.0 10^3/uL Red Blood Count 5.43 4.30-5.52 10^6/uL Hemoglobin 15.5 13.3-17.7 g/dL Hematocrit 45 40-54 % Mean Corpuscular Volume 83 80-99 fL Mean Corpuscular Hemoglobin 29 25-34 pg Mean Corpuscular Hemoglobin Concent 34 32-36 g/dL Red Cell Distribution Width 12.8 10.0-14.5 % Platelet Count 311 130-400 10^3/uL Mean Platelet Volume 9.7 9.0-12.2 fL Immature Granulocyte % (Auto) 0 % Neutrophils (%) (Auto) 62 42-75 % Lymphocytes (%) (Auto) 28 12-44 % Monocytes (%) (Auto) 6 0-12 % Eosinophils (%) (Auto) 3 0-10 % Basophils (%) (Auto) 1 0-10 % Neutrophils # (Auto) 5.3 1.8-7.8 10^3/uL Lymphocytes # (Auto) 2.4 1.0-4.0 10^3/uL Monocytes # (Auto) 0.5 0.0-1.0 10^3/uL Eosinophils # (Auto) 0.3 0.0-0.3 10^3/uL Basophils # (Auto) 0.1 0.0-0.1 10^3/uL Immature Granulocyte # (Auto) 0.0 0.0-0.1 10^3/uL Sodium Level 139 135-145 MMOL/L Potassium Level 3.7 3.6-5.0 MMOL/L Chloride Level 108 H 98-107 MMOL/L Carbon Dioxide Level 21 21-32 MMOL/L Anion Gap 10 5-14 MMOL/L Blood Urea Nitrogen 15 7-18 MG/DL Creatinine 0.83 0.60-1.30 MG/DL Estimat Glomerular Filtration Rate 126 BUN/Creatinine Ratio 18 Glucose Level 94 70-105 MG/DL Calcium Level 9.5 8.5-10.1 MG/DL Corrected Calcium 8.5-10.1 MG/DL Total Bilirubin 0.5 0.1-1.0 MG/DL Aspartate Amino Transf (AST/SGOT) 18 5-34 U/L Alanine Aminotransferase (ALT/SGPT) 31 0-55 U/L Alkaline Phosphatase 71 40-136 U/L Total Protein 7.2 6.4-8.2 GM/DL Albumin 4.6 H 3.2-4.5 GM/DL Urine Color YELLOW Urine Clarity SL CLOUDY Urine pH 7.0 5-9 Urine Specific Whittaker 1.020 1.016-1.022 Urine Protein NEGATIVE NEGATIVE Urine Glucose (UA) NEGATIVE NEGATIVE Urine Ketones NEGATIVE NEGATIVE Urine Nitrite NEGATIVE NEGATIVE Urine Bilirubin NEGATIVE NEGATIVE Urine Urobilinogen 0.2 < = 1.0 MG/DL Urine Leukocyte Esterase NEGATIVE NEGATIVE Urine RBC (Auto) NEGATIVE NEGATIVE Urine RBC NONE /HPF Urine WBC NONE /HPF Urine Squamous Epithelial Cells NONE /HPF Urine Crystals NONE /LPF Urine Bacteria NEGATIVE /HPF Urine Casts NONE /LPF Urine Mucus NEGATIVE /LPF Urine Culture Indicated NO (MATTY,KATLIN K DO) Vital Signs/I&O 09/05/22 09/05/22 13:05 15:45 Temp 35.9 Pulse 74 73 Resp 16 18 B/P (MAP) 137/98 (111) 132/89 Pulse Ox 98 (MATTY,KATLIN K DO) Blood Pressure Mean: 111 Progress Progress Note : Progress Note Patient is nontoxic and well-hydrated on exam. No adventitious lung sounds or increased work of breathing noted. Vital signs are reassuring. No significant CVA tenderness appreciated. Patient ambulatory to the exam room without issue. He is awake alert and oriented and answers all questions appropriately. Patient does appear quite anxious. Orders placed for CBC, CMP, IV insertion, urinalysis, and KUB. Orders placed for 1 L of LR as well as an IV dose of ketorolac. CBC unremarkable. CMP without significant abnormality. Urinalysis also reassuring without any markedly abnormal findings. KUB is acutely negative on my read without any obvious ureteral stones. Formal radiology report in agreement that there are no acute findings noted. Will discharge home with recommendations for supportive care and close follow-up with PCP. Return precautions for urgent symptomology discussed. Patient asked me where I would recommend patient be seen for his chronic headaches. I encouraged him to follow-up with neurology for further evaluation. He states his headaches have been occurring almost daily for the last 8 to 10 months. Patient verbalized understanding. (QUIN GROVER APRN) Departure Impression Primary Impression: Back pain Qualified Codes: M54.50 - Low back pain, unspecified Additional Impression: Anxiety about health Disposition: 01 HOME, SELF-CARE Condition: Stable Departure-Patient Inst. Decision time for Depature: 15:30 (QUIN GROVER APRN) Referrals: [facility] (PCP/Family) Primary Care Physician Patient Instructions: Low Back Pain (DC) Add. Discharge Instructions: Your x-ray today is reassuring. Your blood work and urine all look good. Continue to hydrate well throughout the day and utilize Tylenol or ibuprofen for any continued pain. Follow-up with a neurologist for evaluation of your headaches. I have listed the contact information for [facility] below. [facility]: [phone] All discharge instructions reviewed with patient and/or family. Voiced understanding. Work/School Note: Work Release Form Date Seen in the Emergency Department: Sep 05, 2022 Return to Work: Sep 07, 2022 ATTENDING PHYSICIAN NOTE: I WAS PHYSICALLY PRESENT ER PHYSICIAN, BUT I WAS NOT INVOLVED IN ANY DECISION MAKING OR ANY CARE OF THIS PATIENT, AND I AM NOT COLLABORATING PHYSICIAN. (KATLIN STARR DO) QUIN GROVER APRN Sep 05, 2022 13:29 KATLIN STARR DO Sep 07, 2022 03:37
[2022-09-05] MEDS ORDERED: LACTATED RINGERS 1,000 ML IV SCH (13:30)
[2022-09-05 13:31] LABS: BASOPHILS # (AUTO) 0.1 10^3/uL (0.0-0.1); BASOPHILS % (AUTO) 1 % (0-10); EOSINOPHILS # (AUTO) 0.3 10^3/uL (0.0-0.3); EOSINOPHILS % (AUTO) 3 % (0-10); HEMATOCRIT 45 % (40-54); HEMOGLOBIN 15.5 g/dL (13.3-17.7); LYMPHOCYTES # (AUTO) 2.4 10^3/uL (1.0-4.0); LYMPHOCYTES % (AUTO) 28 % (12-44); MEAN CORPUSCULAR HEMOGLOBIN 29 pg (25-34); MEAN CORPUSCULAR HGB CONC 34 g/dL (32-36); MEAN CORPUSCULAR VOLUME 83 fL (80-99); MEAN PLATELET VOLUME 9.7 fL (9.0-12.2); MONOCYTES # (AUTO) 0.5 10^3/uL (0.0-1.0); MONOCYTES % (AUTO) 6 % (0-12); NEUTROPHILS # (AUTO) 5.3 10^3/uL (1.8-7.8); NEUTROPHILS % (AUTO) 62 % (42-75); PLATELET COUNT 311 10^3/uL (130-400); WHITE BLOOD COUNT 8.5 10^3/uL (4.3-11.0)
[2022-09-05 13:40] LABS: ALBUMIN 4.6 GM/DL (3.2-4.5); CHLORIDE 108 MMOL/L (98-107); POTASSIUM 3.7 MMOL/L (3.6-5.0); SODIUM 139 MMOL/L (135-145)
[2022-09-05 13:41] LABS: CALCIUM 9.5 MG/DL (8.5-10.1)
[2022-09-05 13:42] LABS: GLUCOSE 94 MG/DL (70-105)
[2022-09-05 13:43] LABS: TOTAL PROTEIN 7.2 GM/DL (6.4-8.2)
[2022-09-05 13:44] LABS: BILIRUBIN,TOTAL 0.5 MG/DL (0.1-1.0); CARBON DIOXIDE 21 MMOL/L (21-32)
[2022-09-05 13:46] LABS: ALKALINE PHOSPHATASE 71 U/L (40-136); CREATININE SERUM 0.83 MG/DL (0.60-1.30); GFR ESTIMATED 126
[2022-09-05 13:47] LABS: BUN/CREATININE RATIO 18
[2022-09-05 13:49] LABS: ALANINE AMINOTRANSFERASE 31 U/L (0-55)
[2022-09-05] MEDS ORDERED: KETOROLAC 15 MG/ML VIAL IVP ONE (14:15)
--- NOTE | 2022-09-05 14:21 | Diagnostic Imaging Report ---
REASON FOR EXAM: Bilateral flank pain. COMPARISON: 12/10/2021. TECHNIQUE: 2 views of the abdomen FINDINGS: The bowel gas pattern is nondistended. No large collection of free intraperitoneal air is seen. Scattered small amounts of gas and fecal material are present in the colon. No abnormal extraosseous calcifications are present. No calculi are seen in the area of the kidneys or expected course of the ureters. The gallbladder surgically absent. The osseous structures are age-appropriate. IMPRESSION: 1. No evidence of bowel obstruction or large collection of free intraperitoneal air. 2. No calculi are seen over the kidneys or along the expected course of the ureters. If symptoms persist consider CT of the abdomen and pelvis to further evaluate. Dictated by: Dictated on workstation # [id number]
[2022-09-05 14:30] LABS: BILIRUBIN,URINE NEGATIVE (NEGATIVE); CLARITY,URINE SL CLOUDY; COLOR,URINE YELLOW; GLUCOSE, URINE (UA) NEGATIVE (NEGATIVE); KETONES,URINE NEGATIVE (NEGATIVE); LEUKOCYTE ESTERASE ,URINE NEGATIVE (NEGATIVE); NITRITE,URINE NEGATIVE (NEGATIVE); PROTEIN,URINE NEGATIVE (NEGATIVE)
[2022-09-05 14:40] LABS: BACTERIA,URINE NEGATIVE /HPF
[2022-09-05 15:45] VITALS: BP 132/89
== END 2022-09-05 15:48 | disposition home or self-care (01) ==
LOC: EDUNIT# 12:53 → ER 12:55
DX: M54.50 Low back pain, unspecified (principal); F06.4 Anxiety disorder due to known physiological condition; F17.210 Nicotine dependence, cigarettes, uncomplicated; Z28.310 Unvaccinated for COVID-19
CPT/HCPCS: 36415; 74018; 80053; 81000; 85025